=== PATIENT | female | born 1935 | race Caucasian/White ===

== ENCOUNTER 2016-06-24 11:07 | Inpatient (IN) | payer OTHER, MEDICARE ==
--- NOTE | 2016-06-24 11:50 | EDPHY ---
H & P Time Seen by Provider: 06/24/16 11:35 HPI/ROS: Chief complaint. Seeping edema to both feet HPI. 80-year-old female with swelling to both lower extremities for the last several days. Gradual increase in pedal edema. 2 days ago her Lasix was increased but without effect. She has an open sore on the top of the right foot which is gradually worsening. She was recently started on clindamycin orally for this. No fever. No chest discomfort. Some shortness of breath. ROS Constitutional. no fever/chills, no weakness Eyes. no problems with vision ENT. no sore throat, no nasal drainage Cardiovascular. no chest pain Respiratory. Some shortness of breath Abdominal. no abdominal pain, no nausea/vomiting, no diarrhea . no problems urinating MS. Bilateral pedal edema Skin. Open sore on dorsum right foot Lymph. no swollen glands Neuro. no headache, no dizziness, no difficulty walking or with speech Past Medical/Surgical History: Past medical history coronary artery disease with stents, cholecystectomy, atrial fibrillation, hypertension, chronic renal insufficiency, lung cancer with left lobectomy Social History: , nonsmoker, no alcohol Smoking Status: Never smoked Physical Exam: General Appearance: Alert well-developed female mild distress vital signs are stable. She is afebrile Eyes: Pupils equal and round no pallor or injection. ENT, Mouth: Mucous membranes are moist. Respiratory: There are no retractions, lungs are clear to auscultation. Cardiovascular: Regular rate and rhythm. Gastrointestinal: Abdomen is soft and nontender, no masses, bowel sounds normal. Neurological: Awake and alert, sensory and motor exams grossly normal. Skin: Warm and dry, no rashes. Musculoskeletal: Neck is supple nontender. Extremities bilateral 3 to 4+ pedal edema to both knees. There is an open sore at the base of the 2nd and 3rd toes with purulence. Psychiatric: Patient is oriented X 3, there is no agitation. Constitutional: Initial Vital Signs Temperature (C) 36.7 C 06/24/16 11:10 Heart Rate 54 L 06/24/16 11:10 Respiratory Rate 14 06/24/16 11:10 Blood Pressure 127/43 H 06/24/16 11:10 O2 Sat (%) 92 06/24/16 11:10 O2 Delivery Mode Room Air Allergies/Adverse Reactions: penicillin V potassium [From Pen-Vee K] Allergy (Verified 05/28/16 01:36) Penicillins Allergy (Verified 06/24/16 11:10) Sulfa (Sulfonamide Antibiotics) Allergy (Verified 05/28/16 01:36) Home Medications: Medication Instructions Recorded Amiodarone HCl [Pacerone (*)] 50 mg PO DAILY 08/19/12 Multivitamins [Multivitamin (*)] 1 each PO DAILY 08/19/12 Atorvastatin Calcium [Lipitor 10 10 mg PO HS #30 tab 03/07/16 mg (*)] Clopidogrel Bisulfate [Plavix (*)] 75 mg PO DAILY #30 tab 03/07/16 Nitroglycerin [Nitrostat 0.4 mg 0.4 mg SL PRN PRN #1 btl 03/07/16 (*)] Apixaban [Eliquis] 2.5 mg PO BID 03/12/16 Furosemide [Lasix 20 MG (*)] 20 mg PO DAILY 03/12/16 Propylthiouracil [Propylthiouracil 50 mg PO BID #60 tab 03/13/16 50mg (*)] Losartan Potassium [Cozaar 25 mg 25 mg PO DAILY 05/26/16 (*)] Melatonin [Melatonin 3 MG (*)] 3 mg PO HS #30 tab 05/27/16 Carboxymethylcellulose 1% [Refresh 1 - 2 drop EACHEYE Q2 PRN #0 06/06/16 Celluvisc (*)] droperette Lactulose [Cephulac 20 gm/30 ml 20 gm PO TID PRN #0 ml 06/06/16 oral soln (*)] Metoprolol Tartrate [Lopressor 50 75 mg PO BID #0 tab 06/06/16 mg (*)] Sennosides/Docusate Sodium 1 - 2 tab PO BID #0 tab 06/06/16 [Senokot-S] traMADol [Ultram 50 mg (*)] 50 mg PO Q6HRS PRN #0 tab 06/06/16 Medical Decision Making - Diagnostics Imaging: Foot x-ray demonstrates no osteomyelitis to my interpretation. Chest x-ray shows mild CHF and evidence of her left lobectomy and lung cancer. No pneumonia Procedures: IV normal saline, blood cultures, lactate Patient is given intravenous clindamycin ED Course/Re-evaluation: I obtained a swab for culture and sensitivity of the wound. Re-evaluation at 1:15 p.m.. The patient and I discussed imaging and lab results. We discussed treatment plan including recommendation for admission. She expresses understanding and agreement I consulted and discussed the case with Dr. Garcia, hospitalist, who agrees to the admission Differential Diagnosis: I considered cellulitis, lymphangitis, osteomyelitis. The patient has an open wound that has not been getting better despite oral clindamycin treatment. She has significant underlying congestive heart failure which I think is impairing her circulation inability get better. Plan will be admission, wound care, CHF management - Data Points Laboratory Results: Laboratory Results 06/24/16 11:48 06/24/16 11:48 06/24/16 06/24/16 12:20 11:48 WBC 6.77 10^3/uL (3.80-9.50) RBC 4.34 10^6/uL (4.18-5.33) Hgb 13.5 g/dL (12.6-16.3) Hct 41.2 % (38.0-47.0) MCV 94.9 fL (81.5-99.8) MCH 31.1 pg (27.9-34.1) MCHC 32.8 g/dL (32.4-36.7) RDW 14.6 % (11.5-15.2) Plt Count 239 10^3/uL (150-400) MPV 9.5 fL (8.7-11.7) Neut % (Auto) 73.2 % (39.3-74.2) Lymph % (Auto) 16.4 % (15.0-45.0) [place] % (Auto) 8.3 % (4.5-13.0) Eos % (Auto) 0.9 % (0.6-7.6) Baso % (Auto) 0.6 % (0.3-1.7) Nucleat RBC Rel Count 0.0 % (0.0-0.2) Absolute Neuts (auto) 4.96 10^3/uL (1.70-6.50) Absolute Lymphs (auto) 1.11 10^3/uL (1.00-3.00) Absolute Monos (auto) 0.56 10^3/uL (0.30-0.80) Absolute Eos (auto) 0.06 10^3/uL (0.03-0.40) Absolute Basos (auto) 0.04 10^3/uL (0.02-0.10) Absolute Nucleated RBC 0.00 10^3/uL (0-0.01) Immature Gran % 0.6 % (0.0-1.1) Immature Gran # 0.04 10^3/uL (0.00-0.10) VBG Lactic Acid 1.7 mmol/L (0.7-2.1) Sodium 141 mEq/L (134-144) Potassium 3.9 mEq/L (3.5-5.2) Chloride 100 mEq/L (97-110) Carbon Dioxide 30 mEq/l (22-31) Anion Gap 11 mEq/L (8-16) BUN 32 H mg/dL (7-23) Creatinine 1.1 H mg/dL (0.6-1.0) Estimated GFR 48 Glucose 69 L mg/dL (70-100) Calcium 8.8 mg/dL (8.5-10.4) Troponin I < 0.012 ng/mL (0-0.034) NT-Pro-B Natriuret Pep 8910 H pg/mL (0-450) Departure - Departure Disposition: Home, Routine, Self-Care Clinical Impression: CHF (congestive heart failure) Qualifiers: Congestive heart failure type: combined Congestive heart failure chronicity: acute on chronic Qualifier Code: (I50.43) 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
[2016-06-24] MEDS ORDERED: ERTAPENEM 1 GM in NS 100 ML IV ONE (12:02)
[2016-06-24] MEDS ORDERED: CLINDAMYCIN 600 MG/DEXTROSE 50 ML IV ONE (12:05)
[2016-06-24 12:09] LABS: % IMMATURE GRANULYOCYTES 0.6 % (0.0-1.1); ABSOLUTE IMMATURE GRANULOCYTES 0.04 10^3/uL (0.00-0.10); ADD DIFF? NO; ADD MORPH? NO; ADD SCAN? NO; ATYPICAL LYMPHOCYTE FLAG 10 (0-99); FRAGMENT RBC FLAG 0 (0-99); HEMATOCRIT 41.2 % (38.0-47.0); HEMOGLOBIN 13.5 g/dL (12.6-16.3); LEFT SHIFT FLG 0 (0-99); LIPEMIA HEMOLYSIS FLAG 80 (0-99); MEAN CELL HEMOGLOBIN 31.1 pg (27.9-34.1); MEAN CELL HEMOGLOBIN CONCENTR. 32.8 g/dL (32.4-36.7); MEAN CELL VOLUME 94.9 fL (81.5-99.8); MEAN PLATELET VOLUME 9.5 fL (8.7-11.7); PLATELET CLUMPS FLAG 0 (0-99); PLATELET COUNT 239 10^3/uL (150-400); RED BLOOD CELL COUNT 4.34 10^6/uL (4.18-5.33); RED CELL DISTRIBUTION WIDTH 14.6 % (11.5-15.2)
[2016-06-24 12:15] LABS: ANION GAP 11 mEq/L (8-16); CALCIUM 8.8 mg/dL (8.5-10.4); CARBON DIOXIDE 30 mEq/l (22-31); CHLORIDE 100 mEq/L (97-110); CREATININE 1.1 mg/dL (0.6-1.0); GLOMERULAR FILTRATION RATE 48; GLUCOSE 69 mg/dL (70-100); POTASSIUM 3.9 mEq/L (3.5-5.2); SODIUM 141 mEq/L (134-144)
[2016-06-24 12:27] LABS: TROPONIN I < 0.012 ng/mL (0-0.034)
--- NOTE | 2016-06-24 13:01 | DX ---
Portable chest x-ray 1226 hours. History: Chest pain. Findings: Comparison to May 26, 2016. The patient has apparently had previous lobectomy on the left with surgical clips in place. There is volume loss of the left hemithorax. Heart size remains mild to moderately enlarged. Pulmonary vascula ture is prominent centrally similar to the prior study. The lungs are hyper expanded. There is new co nsolidation suspected left lung base versus atelectasis. No additional areas of consolidation are see n evidence of pneumothorax. There is blunting of the costophrenic angles compatible with small effusi ons. Osseous structures are unchanged. There has been previous surgical resection of the left 5th rib . Dextroscoliosis is once again noted of the lower thoracic spine. Impression: 1. Interval development of consolidation or atelectasis left lung base. 2. Small bibasilar pleural effusions suspected. 3. Postoperative changes from previous lobectomy on the left. 4. Stable mild to moderate cardiomegaly 5. COPD
[2016-06-24] MEDS ORDERED: ACETAMINOPHEN 325 MG TAB ONE (13:51)
--- NOTE | 2016-06-24 14:00 | DX ---
Right Foot, 3 Views, at 12:27 p.m. Clinical History: 80-year-old female with pedal edema and an open sore on the top of the right foot (near the base of the second and third toes) which has been gradually worsening, recently treated wit h clindamycin. Comparison Study: Right foot, dated October 28, 2014. Findings: The bones are diffusely demineralized. There is no acute marginal erosive change to sugges t osteomyelitis. There is a mild hallux valgus configuration with an osseous bunion and degenerative osteoarthrosis of the great toe metatarsophalangeal joint. There has been interim healing of the frac ture previously seen at the level of the distal portion of the fourth toe proximal phalanx. The tarso metatarsal alignment is anatomic. There are prominent posterior calcaneal enthesophytes. Vascular kendal cifications are present. There is some mild dorsal forefoot soft tissue swelling noted on the lateral view. Impression: There is no acute osseous abnormality identified. If there is continuing clinical concern regarding an occult osteomyelitis, contrast-enhanced MR imagi ng is suggested.
[2016-06-24] MEDS ORDERED: CARBOXYMETHYLCELLULOSE 1% 0.4 ML DROPERETTE EACHEYE PRN (14:37)
[2016-06-24] MEDS ORDERED: traMADol 50 MG TAB PO PRN (14:37)
[2016-06-24] MEDS ORDERED: ONDANSETRON 4 MG/2 ML VIAL IVP PRN (14:40)
[2016-06-24] MEDS ORDERED: ONDANSETRON DISINTEGRATING 4 MG TAB PO PRN (14:40)
--- NOTE | 2016-06-24 15:20 | GHP ---
[f rep st] HISTORY AND PHYSICAL DATE OF ADMISSION: 06/24/2016 CHIEF COMPLAINT: Lower extremity edema. HISTORY OF PRESENT ILLNESS: This is an 80-year-old female with a complicated medical history. She h as a history of an MT about 4 months ago. At that time, she had stenting to the right coronary arter y x2. She also has history of paroxysmal atrial fibrillation. Last echocardiogram done in March this year showed an EF of 35% to 40% with cvbjucul-hy-ahimkj mitral regurgitation and pulmonary hyp ertension. She was recently admitted to the hospital just a few weeks ago for cholecystitis for whic h she had gallbladder removed, and an ovarian mass was biopsied, which was benign. She said she went to rehab, and in rehab, she had worsening lower extremity swelling, which she says was not addressed . She has been out of rehab for a few days now and was able to see her private sector executive, but the [facility] saw her legs and told her to come to the emergency department. She has some blister s on her right toes that now have burst. She had some increasing pain in the right leg. No fevers o r chills. No shortness of breath. She actually feels quite well overall and is frustrated about supa ng back in the hospital. REVIEW OF SYSTEMS: A 10-point review of systems was obtained and was negative. PAST MEDICAL HISTORY: 1. Coronary artery disease, status post recent stenting. 2. History of atrial fibrillation with rapid ventricular response. 3. Mmugivvo-rc-blgehk mitral regurgitation as above. 4. Recent cholecystitis status post recent cholecystectomy. 5. Ovarian mass. Pathology appears to be benign. 6. History of peripheral vascular disease and left renal artery stenosis. 7. Chronic kidney disease for which she sees Dr. Pollard. 8. History of lung cancer of the left lower lobe status post lobectomy. 9. Hyperthyroidism on PTU. 10. Recent fractured wrist. 11. Osteoporosis. SOCIAL HISTORY: for 19 years. Has 2 adult children. MEDICATIONS: Reviewed. ALLERGIES: Penicillin causes throat to be closed. This was when she was young. She is also allergi c to sulfa. FAMILY HISTORY: Both parents are . PHYSICAL EXAM: VITAL SIGNS: Afebrile, blood pressure is 128/64, heart rate 53, oxygen saturation 96 % on room air. GENERAL: The patient is thin but in no apparent distress. HEENT: Nonicteric sclera e. Extraocular movements intact. Moist mucous membranes. NECK: Supple. No thyromegaly. LUNGS: Good effort. Decreased breath sounds in the left base. Otherwise clear. CARDIOVASCULAR: Regular r ate and rhythm. ABDOMEN: Positive bowel sounds. Soft, nontender, nondistended. No hepatosplenomeg nayana. EXTREMITIES: 2+ pedal edema bilaterally and symmetric. Right foot has some erythema that is e xtending to the toes and to the dorsum of the foot. There are 2 blisters on the anterior toes that h ave burst. Foot is little bit warmer than the other one. NEUROLOGIC: Alert and oriented x3. Movin g all 4 extremities equally. PSYCH: Normal mood and affect. LABS: CBC is completely normal. Chemistry shows a creatinine 1.1. BNP of 8910. Chest x-ray personally reviewed and interpreted shows possible atelectasis, left lower lobe status po st lobectomy. ASSESSMENT: This is an 80-year-old female presenting with congestive heart failure exacerbation and possible right lower extremity cellulitis. PLAN: 1. CHF exacerbation. 2. Acute systolic congestive heart failure exacerbation. The patient probably has lower extremity e zina and is probably due to her MR and pulmonary hypertension. We will start IV Lasix. I have also talked to cardiology as she is a regular patient of Dr. Kohli in [facility] for them to see the patie nt as well. 3. Possible right lower extremity cellulitis. I am a little bit on the fence if this is just inflam mation versus cellulitis. However foot is warm, and her toes are somewhat red. She does have a tariq re allergy to penicillin and insists that she takes clindamycin without problems. I do want to avoid clindamycin as this would put her at high risk for C difficile. Will probably just give her vancomy jak at this time and watch. I think she only needs a few days of antibiotics. 4. Paroxysmal atrial fibrillation. Patient currently in sinus rhythm and will continue anticoagulat ion. 5. Chronic kidney disease. Patient is at her baseline. 6. Coronary artery disease. This appears to be quiescent. 7. Patient is a DNR. /[id number]/MODL
[2016-06-24] MEDS: FUROSEMIDE 40 MG/4 ML VIAL IVP SCH (16:15)
[2016-06-24] MEDS: VANCOMYCIN 500 MG in D5W 100 ML IV SCH (17:15)
[2016-06-24] MEDS ORDERED: SENNOSIDES/DOCUSATE SODIUM TAB PO PRN (18:00)
[2016-06-24] MEDS: ATORVASTATIN CALCIUM 10 MG TAB PO SCH (21:29)
[2016-06-24] MEDS: ACETAMINOPHEN 325 MG TAB PO PRN (21:29)
[2016-06-24] MEDS: APIXABAN 2.5 MG TAB PO SCH (21:29)
[2016-06-24] MEDS: MELATONIN 3 MG TAB PO SCH (21:30)
[2016-06-24] MEDS: METOPROLOL TARTRATE 50 MG TAB PO SCH (21:54)
[2016-06-24] MEDS: TOBRAMYCIN/DEXAMETH 5 ML OPHT.BTL EACHEYE SCH (23:17)
[2016-06-25] MEDS: ACETAMINOPHEN 325 MG TAB PO PRN ×2 (03:58→12:13)
[2016-06-25 05:10] LABS: % IMMATURE GRANULYOCYTES 0.8 % (0.0-1.1); ABSOLUTE IMMATURE GRANULOCYTES 0.05 10^3/uL (0.00-0.10); ADD DIFF? NO; ADD MORPH? NO; ADD SCAN? NO; ATYPICAL LYMPHOCYTE FLAG 0 (0-99); FRAGMENT RBC FLAG 0 (0-99); HEMATOCRIT 37.1 % (38.0-47.0); HEMOGLOBIN 12.3 g/dL (12.6-16.3); LEFT SHIFT FLG 0 (0-99); LIPEMIA HEMOLYSIS FLAG 80 (0-99); MEAN CELL HEMOGLOBIN 30.8 pg (27.9-34.1); MEAN CELL HEMOGLOBIN CONCENTR. 33.2 g/dL (32.4-36.7); MEAN PLATELET VOLUME 9.9 fL (8.7-11.7); PLATELET CLUMPS FLAG 0 (0-99); PLATELET COUNT 203 10^3/uL (150-400); RED BLOOD CELL COUNT 3.99 10^6/uL (4.18-5.33); RED CELL DISTRIBUTION WIDTH 14.6 % (11.5-15.2)
[2016-06-25 05:32] LABS: ANION GAP 7 mEq/L (8-16); CALCIUM 8.6 mg/dL (8.5-10.4); CARBON DIOXIDE 32 mEq/l (22-31); CHLORIDE 103 mEq/L (97-110); CREATININE 1.1 mg/dL (0.6-1.0); GLOMERULAR FILTRATION RATE 48; GLUCOSE 69 mg/dL (70-100); MAGNESIUM 2.3 mg/dL (1.6-2.3); POTASSIUM 3.5 mEq/L (3.5-5.2); SODIUM 142 mEq/L (134-144)
[2016-06-25] MEDS: METOPROLOL TARTRATE 50 MG TAB PO SCH ×2 (07:53→21:58)
[2016-06-25] MEDS: LOSARTAN POTASSIUM 25 MG TAB PO SCH (07:55)
[2016-06-25] MEDS: AMIODARONE HCL 200 MG TAB PO SCH (07:55)
[2016-06-25] MEDS: APIXABAN 2.5 MG TAB PO SCH ×2 (07:55→21:58)
[2016-06-25] MEDS: CLOPIDOGREL BISULFATE 75 MG TAB PO SCH (07:55)
[2016-06-25] MEDS: FUROSEMIDE 40 MG/4 ML VIAL IVP SCH ×2 (07:56→14:35)
[2016-06-25] MEDS: POLYETHYLENE GLYCOL 3350 17 GM PKT PO SCH (07:56)
[2016-06-25] MEDS: TOBRAMYCIN/DEXAMETH 5 ML OPHT.BTL EACHEYE SCH ×3 (08:01→22:00)
--- NOTE | 2016-06-25 09:03 | HOSPPROG ---
Hospitalist Progress Note Assessment/Plan: * acute systolic CHF exacerbation * continue IV Lasix for another day * echo pending * possible left lower extremity cellulitis * erythema is a lot better today. * Will continue IV vancomycin another day and may switch to an oral antibiotic for a day or 2 depending on how long she stays. * Not completely convinced this was cellulitis but it does seem to be getting better pretty quickly * history of coronary artery disease with recent stent * paroxysmal atrial fibrillation * in sinus * recent cholecystectomy * mild chronic kidney disease * at baseline * DNR Subjective: Feels better. Legs feel better. No chest pain or shortness of breath Objective: Vital Signs Temp Pulse Resp BP Pulse Ox 36.4 C 46 L 18 158/66 H 92 06/25/16 07:09 06/25/16 07:09 06/25/16 07:09 06/25/16 07:09 06/25/16 07:09 Laboratory Results 06/25/16 03:52 06/25/16 03:52 06/24/16 06/25/16 06/26/16 05:59 05:59 05:59 Intake Total 350 Output Total 1351 200 Balance -1001 -200 - Physical Exam Constitutional: no apparent distress, appears nourished, not in pain Eyes: anicteric sclera, EOMI Ears, Nose, Mouth, Throat: moist mucous membranes, hearing normal Cardiovascular: regular rate and rhythym, edema ( improved edema now 1+) Respiratory: no respiratory distress Gastrointestinal: normoactive bowel sounds, soft, non-tender abdomen, no palpable masses Skin: warm Musculoskeletal: other ( right foot with improving erythema. toes now do not have erythema) Neurologic: AAOx3 Psychiatric: interacting appropriately, not anxious, not encephalopathic, thought process linear ICD10 Worksheet Patient Problems: Problems Problem Status Diagnosed Acute decompensated heart failure Acute CHF (congestive heart failure) Acute Chronic Diseae Mgmt/Transitional Care Acute Foot ulcer Acute MEREDITH (acute kidney injury) Acute Afib Acute Atrial fibrillation with rapid ventricular response Acute Chest pain Acute Dehydration Acute Elevated LFTs Acute Pleural effusion due to CHF (congestive heart failure) Acute
--- NOTE | 2016-06-25 10:43 | ECHO ---
[id number] + + [address] : : [place] [id number] : : [phone] + Adult Echocardiographic Report + -------+ :Name: CHIO HAUSER Date: 06/25/2016 09:01 AM BP: 158/66 mmH g : : Hospital Admission Number: [id number] Locati on: 208: :: 1935 Gender: Female Height: 64 in : :Age: 80 yrs Race: WH Weight: 89 lb : :Reason For Study: copd/sob/cp/bilateral edema : : BSA: 1.4 meter s2 : :History: MR/TR : + -------+ MMode/2D Measurements & Calculations IVSd: 0.99 cm RVDd: 4.2 cm FS: 38.1 % MV Diam: 3.2 cm LVPWd: 0.94 cm LVIDd: 4.3 cm EDV(Teich): 83.1 ml LVIDs: 2.7 cm ESV(Teich): 26.0 ml EF(Teich): 68.7 % Ao root diam: LVOT diam: 1.9 cmLVLd ap4: 6.1 cm SV(MOD-sp4): 2.1 cm LVOT area: EDV(MOD-sp4): 50.0 ml LA dimension: 2.8 cm2 73.0 ml 5.1 cm LVLs ap4: 5.1 cm ESV(MOD-sp4): 23.0 ml EF(MOD-sp4): 68.5 % Normal Measurement Values: + + :LVIDd (3.5-5.7cm) IVSd (0.6-1.1cm) LVPWd (0.6-1.1cm) Aortic Root (2.0-3.7cm)Left Atrium (1.5-4.0cm): :LV Vol(d) (76-115ml) LV Vol(s) (29-48ml) Ejec Fraction (50-65%)PV Jl (0.6- 1.2m/s) TV Jl (0.4-1.0m/s) : :MV E Jl (0.8-1.0m/s)MV A Jl (0.3-1.0m/s)LVOT Jl (0.7-1.2m/s) Asc Ao Jl ( 0.9-1.8m/s) : + + Doppler Measurements & Calculations MV E max jl: MV V2 max: Ao V2 max: AI max jl: 71.1 cm/sec 45.9 cm/sec 106.0 cm/sec 357.0 cm/sec MV A max jl: MV max PG: Ao max PG: AI max P.2 cm/sec 0.84 mmHg 4.5 mmHg 51.0 mmHg MV E/A: 1.2 MV V2 mean: ANJU(V,D): 2.5 cm2 AI dec slope: MV dec time: 24.4 cm/sec 161.0 cm/sec2 0.20 sec MV mean PG: AI P1/2t: 0.00 mmHg 649.5 msec MV V2 VTI: 18.7 cm MV area (1 diam): 8.0 cm2 MVA(VTI): 3.5 cm2 MV Flow area (1diam): 8.0 cm2 LV V1 max: MR max jl: MR(RF 1 diam): SV(MV 1 diam): 94.7 cm/sec 439.0 cm/sec 33.6 % 150.4 ml LV V1 max PG: MR max PG: SI(MV 1 diam): 3.6 mmHg 77.1 mmHg 108.5 ml/m2 LV V1 mean PG: SV(LVOT): 65.5 ml 2.0 mmHg LV V1 mean: 62.6 cm/sec LV V1 VTI: 23.1 cm PA V2 max: TR max jl: RF(MV,LVOT) 69.8 cm/sec 394.0 cm/sec (1diam): 0.56 PA max PG: TR max P.9 mmHg 62.1 mmHg RAP systole: 15.0 mmHg RVSP(TR): 77.1 mmHg Left Ventricle The left ventricle is normal in size and function. There is borderline concentric left ventricular hypertrophy. Ejection Fraction = 65-70%. Most likely grade II diastolic dysfunction. No regional wall motion abnormalities noted. Right Ventricle The right ventricle is mildly dilated. The right ventricular systolic function is normal. Atria The left atrium is severely dilated. The right atrium is severely dilated. A dilated inferior vena cava suggests increased right atrial pressure. The lack of respiratory variation in the inferior vena cava diameter is noted. Mitral Valve The mitral valve leaflets appear thickened, but open well. There is mild mitral annular calcification. There is no mitral valve stenosis. There is moderate mitral regurgitation. Tricuspid Valve The tricuspid valve is normal in structure and function. There is no tricuspid stenosis. There is severe tricuspid regurgitation. Right ventricular systolic pressure is 77mmHg. There is Doppler evidence for severe pulmonary hypertension. Aortic Valve The aortic valve is trileaflet. There is mild aortic valve calcification. There is no aortic stenosis. Mild aortic regurgitation. Pulmonic Valve The pulmonic valve is not well visualized. Mild pulmonic valvular regurgitation. Great Vessels The aortic root is normal size. Pericardium/Pleural Small pericardial effusion. Conclusion A two-dimensional transthoracic echocardiogram with M-mode and Doppler was performed. The left ventricle is normal in size and function. There is borderline concentric left ventricular hypertrophy. Ejection Fraction = 65-70%. Most likely grade II diastolic dysfunction. The right ventricle is mildly dilated. The left atrium is severely dilated. The right atrium is severely dilated. A dilated inferior vena cava suggests increased right atrial pressure. The lack of respiratory variation in the inferior vena cava diameter is noted. There is moderate mitral regurgitation. There is severe tricuspid regurgitation. Right ventricular systolic pressure is 77mmHg. There is Doppler evidence for severe pulmonary hypertension. Mild aortic regurgitation. Mild pulmonic valvular regurgitation. Small pericardial effusion. Final Reading Physician: Heike Johnson signed on 06/25/2016 10:42 AM Ordering Physician: Enrique Amaya Performed By: Lou Jj
--- NOTE | 2016-06-25 14:42 | SOAPPROG ---
[facility] Progress Note Assessment/Plan: Assessment: 1. Coronary artery disease 2. Remote cardiomyopathy 3. Diastolic dysfunction 4. Elevated BNP 5. HFPEF 6. Atrial fibrillation 7. Chronic full anticoagulation The patient is doing fine today she received multiple doses of IV Lasix and she has gotten IV Lasix today. I would resume her p. o. Lasix tomorrow. She feels well. I do believe that she had some diastolic heart failure when she came in. That is not why she was admitted to the hospital however. She follows with Dr. Uriarte in the [facility] failure [facility] and will continue with him. All questions have been answered. She is in sinus rhythm. She has known coronary artery disease with a stent several months ago. She is doing very well with that. I have discussed prevention with her. Her echocardiographic study today shows no stones and no abnormality of systolic function, she has diastolic dysfunction and mitral and tricuspid regurgitation and elevated pulmonary artery pressure. All these things have been there a long standing. She is taking her atorvastatin and her full anticoagulation. She is on Plavix as a anti-platelet medication will continue that for a year after her stent. From a heart failure situation she is on Coreg and Lasix losartan tolerating knows very well. If she develops more troubles at any time she will let us know. She will follow up with Dr. Manning in clinic in 10 days or sooner as needed. Problem 8. Wound right leg This is being evaluated by the room service. She is feeling like it is improving She is on full antibiotics. There is nothing in her case that suggest to me that she has developed endocarditis or any other significant valvular problem due to this infection. Plan: 06/25/16 14:39 Subjective: She feels better today. She continues to have worries about her right leg. She does not have any shortness of breath today. She feels like she is doing well. She has no chest pain or jaw pain. When I examined her yesterday and spoke with her extensively She told me that she was not having shortness of breath and that is not why she came to the hospital. She specifically came to the hospital because the nursing service The was in charge of her care told her to come to the emergency room When she explained her wound on her right leg. She has not had fevers or chills No cough no chest tightness. Objective: Vital Signs Temp Pulse Resp BP Pulse Ox 36.5 C 45 L 14 114/51 L 93 06/25/16 12:00 06/25/16 12:00 06/25/16 12:00 06/25/16 12:00 06/25/16 12:00 Laboratory Results 06/25/16 03:52 06/25/16 03:52 06/24/16 06/25/16 06/26/16 05:59 05:59 05:59 Intake Total 350 Output Total 1351 950 Balance -1001 -950 Physical Exam - Physical Exam General Appearance: alert, no apparent distress Neck: full range of motion Respiratory: rhonchi, No respiratory distress, No rales, No wheezing Cardiac/Chest: regular rate, rhythm, systolic murmur Abdomen: non-tender, soft, No organomegaly Skin: warm/dry (wound r lower extremity) ICD10 Worksheet Patient Problems: Problems Problem Status Diagnosed Acute decompensated heart failure Acute CHF (congestive heart failure) Acute Chronic Diseae Mgmt/Transitional Care Acute Foot ulcer Acute MEREDITH (acute kidney injury) Acute Afib Acute Atrial fibrillation with rapid ventricular response Acute Chest pain Acute Dehydration Acute Elevated LFTs Acute Pleural effusion due to CHF (congestive heart failure) Acute
--- NOTE | 2016-06-25 15:34 | GCON ---
[f rep st] CONSULTATION CARDIOVASCULAR CONSULTATION DATE OF CONSULTATION: 06/24/2016 The patient was admitted to [facility], and I have been asked by the hospitalist to provide a cardiovascular consultation. She tells me that she had been in rehab after her gallbladder surgery. She was there for 7 or 8 days, and then she went home a few days ago. Her foot has been just awful, her right foot. It has been bothering her a great deal. It is painful. She has a wound there, and she is very worried about it. Her leg has become more swollen. She talked to the nursing staff of the people that were providing her home health support and the nursing staff said she should go to the emergency room. She went to the emergency room and was cared for there, and because she had developed such a wound, she was admitted to the hospital. She does not have any fevers or chills or cough. She has not had chest pain or chest tightness. She denies any significant change in shortness of breath. She really came not because of any heart symptoms, she says, but because her leg was bothering her. She sleeps on 2 pillows and that is no different. She had no dyspnea on exertion, no early satiety, no increasing abdominal girth. She does not have nausea, vomiting, diarrhea, or constipation. No rigors. No hot swollen joints or other rashes, except for her lower extremity on the right side. She has not had headache, stiff neck, or sore throat. No photophobia. No dysuria, frequency, or pyuria. No trauma. She does not have a history of cancer. She did have breast cancer years ago, but no recent cancers. She has been sitting around quite a great deal, and she has not been very active with all of these changes that have been going on with her. Her cardiac history includes a myocardial infarction in February 2016, and she received a stent to her right coronary artery. At that time, her ejection fraction was 47%. She has had atrial fibrillation. In the past, she has used amiodarone. Cardiac risk factors are negative for diabetes mellitus. She does have a history of peripheral vascular disease with left renal artery stenosis. She is also cared for for chronic renal insufficiency and sees Dr. Pollard on the renal service. She does not smoke. She has not had hyperuricemia. She is not obese. She is quite active. She is very pleasant. PAST MEDICAL HISTORY: Includes breast cancer. She does have hypertension for cardiac risk factors. She has had hypothyroidism. She has long-standing mitral regurgitation. She has had thyroid nodules in the past. ALLERGIES: Penicillin. MEDICATIONS: Listed in the record and not repeated here. FAMILY HISTORY: No family history of premature coronary disease. No history of unexplained sudden at a young age. No smoking, no significant drinking history. SOCIAL HISTORY: She was born in [place]. At age 18, she moved to [place]. 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 She also has worked at [employer] and done that recently. 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 She found [place] a little bit slow for her. She was near [place]. She has worked at [employer] [facility] [employer] in the past in [place]. She has 2 children, a daughter, who is here, and a child in [place]. She does not smoke. She does not drink significant amounts of alcohol. She exercises by walking around. PHYSICAL EXAMINATION: VITAL SIGNS: Her blood pressure is 110/77, heart rate 60 , respiratory rate 12. GENERAL APPEARANCE: She is sitting comfortably in the hospital bed. NECK: Supple. CARDIOVASCULAR: S1, S2. Systolic murmur at the left sternal border. No diastolic murmur. No S3, S4, or rubs. PULMONARY: Rhonchi bilaterally. No rales, wheezes, or dullness. CVA: No tenderness. ABDOMEN: Soft, nontender, without masses. SKIN: Age-related changes and significant wound in the right lower extremity. Both extremities show minimal edema. NEUROLOGIC: She is alert and intact. PSYCHIATRIC: No obvious anxiety or depression. DATA: Her echocardiographic study shows an excellent EF today. Her pulmonary artery pressure is elevated, as it has been in the past. ASSESSMENT/PLAN: 1. Coronary artery disease. 2. Diastolic dysfunction. 3. Mitral regurgitation. 4. Elevated BNP. 5. Paroxysmal atrial fibrillation. She is having no acute cardiovascular symptoms or changes. When she came in, it was felt that she had some acute diastolic dysfunction, she was given some IV Lasix, and she feels wonderful; but, she told me all the way along she did not think that she had shortness of breath to start with, and that is not bothering her now. What she is really worried about is her right leg. She is followed by Dr. Kohli in the congestive heart failure clinic, and he will see her on a regular basis over time. So, she is doing very well from a congestive heart failure [id number] right now. She will follow in clinic. She is on full anticoagulation, which is what she needs because of her [id number]- VASc score. She is in sinus rhythm today. 6. Right lower extremity wound. This leg does not look good, and it is a significant problem for her. It is going to be managed by the wound clinic and , if necessary, Dr. Pineda. She has had her gallbladder out recently with Dr. Pineda. There is also some concern that she could have embolic disease, as she has been sitting around a great deal and she has not been as active as normal. I will discuss this with the hospitalist for further evaluation. 7. Chronic renal insufficiency. 8. History of renal stenosis. Thank you very much for asking me to see this very complex woman. I will follow her closely with you. /[id number]/MODL MTDD
[2016-06-25] MEDS: VANCOMYCIN 500 MG in D5W 100 ML IV SCH (15:47)
[2016-06-25 15:57] VITALS: O2SAT 91
[2016-06-25] MEDS: ATORVASTATIN CALCIUM 10 MG TAB PO SCH (21:58)
[2016-06-25] MEDS: MELATONIN 3 MG TAB PO SCH (22:03)
[2016-06-26] MEDS: ACETAMINOPHEN 325 MG TAB PO PRN (00:54)
[2016-06-26 07:23] VITALS: BP 162/66; PULSE 46; RESP 14; TEMP 97.6
[2016-06-26] MEDS: FUROSEMIDE 40 MG/4 ML VIAL IVP SCH (08:11)
[2016-06-26] MEDS: METOPROLOL TARTRATE 50 MG TAB PO SCH (08:12)
[2016-06-26] MEDS: LOSARTAN POTASSIUM 25 MG TAB PO SCH (08:12)
[2016-06-26] MEDS: APIXABAN 2.5 MG TAB PO SCH (08:13)
[2016-06-26] MEDS: AMIODARONE HCL 200 MG TAB PO SCH (08:13)
[2016-06-26] MEDS: CLOPIDOGREL BISULFATE 75 MG TAB PO SCH (08:13)
[2016-06-26] MEDS: TOBRAMYCIN/DEXAMETH 5 ML OPHT.BTL EACHEYE SCH (08:14)
[2016-06-26] MEDS: POLYETHYLENE GLYCOL 3350 17 GM PKT PO SCH (08:56)
--- NOTE | 2016-06-26 10:08 | PDIAF ---
- Diagnosis Diagnosis: acute diadtolic heart failure Code Status: Do Not Resuscitate - Medication Management Discharge Medications: Medications to Continue on Transfer Amiodarone HCl [Pacerone (*)] 50 mg PO DAILY 08/19/12 [Last Taken 06/24/16] Multivitamins [Multivitamin (*)] 1 each PO DAILY 08/19/12 [Last Taken 06/24/16] Atorvastatin Calcium [Lipitor 10 mg (*)] 10 mg PO HS #30 tab 03/07/16 [Last Taken 06/23/16] Clopidogrel Bisulfate [Plavix (*)] 75 mg PO DAILY #30 tab 03/07/16 [Last Taken 06/24/16] Nitroglycerin [Nitrostat 0.4 mg (*)] 0.4 mg SL PRN PRN #1 btl 03/07/16 [Last Taken Unknown] Apixaban [Eliquis] 2.5 mg PO BID 03/12/16 [Last Taken 06/24/16] Losartan Potassium [Cozaar 25 mg (*)] 25 mg PO DAILY 05/26/16 [Last Taken ] Carboxymethylcellulose 1% [Refresh Celluvisc (*)] 1 - 2 drop EACHEYE Q2 PRN #0 droperette 06/06/16 [Last Taken 06/24/16] Metoprolol Tartrate [Lopressor 50 mg (*)] 75 mg PO BID #0 tab 06/06/16 [Last Taken 06/24/16] traMADol [Ultram 50 mg (*)] 50 mg PO Q6HRS PRN #0 tab 06/06/16 [Last Taken 06/24] Acetaminophen [Tylenol 325mg (*)] 650 mg PO Q6 PRN 06/24/16 [Last Taken Unknown] Clindamycin HCl [Clindamycin] 300 mg PO TID 06/24/16 [Last Taken 06/24/16] Furosemide [Lasix 40 MG (*)] 40 mg PO DAILY 06/24/16 [Last Taken 06/24/16] Melatonin [Melatonin 3 MG (*)] 6 mg PO HS 06/24/16 [Last Taken 06/23/16] Polyethylene Glycol 3350 [Miralax 17 gm (*)] 17 gm PO DAILY 06/24/16 [Last Taken Unknown] Sennosides/Docusate Sodium [Senokot-S] 2 tab PO DAILY@18 PRN 06/24/16 [Last Taken 06/23/16] Tobramycin/Dexamethasone [Tobradex Eye Drops] 1 drop EACHEYE TID 06/24/16 [Last Taken Unknown] Discharge Medications: Refer to the Discharge Home Medication list for PRN reason. - Orders Diet Recommendation: no restrictions on diet, ADA 1800 consistent carb Diet Texture: Regular Texture Diet - Follow Up Care Current Providers and Referrals: Charissa Shen MD [Primary Care Provider] - As per Instructions
--- NOTE | 2016-06-26 11:35 | SOAPPROG ---
SOAP Progress Note Assessment/Plan: Assessment: 1. Coronary artery disease 2. Remote cardiomyopathy 3. Diastolic dysfunction 4. Elevated BNP 5. HFPEF 6. Atrial fibrillation 7. Chronic full anticoagulation Plan: 06/25/16 14:39 06/26/16 11:35 1. Coronary artery disease 2. Prior history of systolic ischemic cardiomyopathy 3. Diastolic dysfunction 4. Elevated BNP 5.HFPEF ; chronic 6 atrial fibrillation 7. Chronic full anticoagulation 8. Wound of right lower extremity She is preparing to go home. She would like to leave the hospital. She is not having any worsening symptoms of cardiovascular issues right now. She will be very active at home. She feels like her wound is much improved. She is not having any GI neurologic pulmonary a cardiovascular complaints today. I think she will do very well. For her coronary artery disease she is going to stay on Plavix and her statin. She is going to slowly pickle sorter her exercise for prevention. She will consider cardiac rehab. She has no symptoms of heart failure at this time. She has been given IV Lasix for several days and I think she should go home on 40 mg dosing of Lasix. That is the dose she was on before. She will follow up with the Heart failure Clinic within a week and they can adjust diuretics as needed to be. At this point time I do not want her to get too dried out. I talked her about postural hypotension of talked her about dehydration. She will be very careful. We really do not want her to go home and have a fall and break a bone. She feels quite prepared to go home and be there rather than get more help. She is on a full anticoagulation now having no complications with that right now. All her questions have been answered. She will call us any time she develops new issues. I have stressed with her that I want to make sure she stays out of the hospital I want to make sure that she feels strong. I want to make sure she knows how to call us if she has any issues. I have discussed her today with her nursing staff and with the hospitalists. Subjective: She has no shortness of breath. She is not getting chest pain. She has no peripheral edema. She is able to sleep flat. She is having no fevers chills or cough She has not developed any new rashes. She does not have itchy skin. She has no symptoms of bleeding. She is taking her medications and doing well. She feels quite Strong Objective: Vital Signs Temp Pulse Resp BP Pulse Ox 36.4 C 46 L 14 162/66 H 91 L 06/26/16 07:20 06/26/16 07:20 06/26/16 07:20 06/26/16 07:20 06/26/16 07:20 Laboratory Results 06/25/16 03:52 06/25/16 03:52 06/25/16 06/26/16 06/27/16 05:59 05:59 05:59 Intake Total 350 400 Output Total 1351 1968 100 Balance -1001 -1568 -100 Physical Exam - Physical Exam General Appearance: alert Neck: supple Respiratory: rhonchi, No rales Cardiac/Chest: regular rate, rhythm, systolic murmur, No edema, No gallop Abdomen: normal bowel sounds, non-tender, soft, No organomegaly Skin: normal color (wound remainHes as described RLE.), other (wound as described RLE) Extremities: non-tender, No calf tenderness Neuro/Psych: alert, normal mood/affect ICD10 Worksheet Patient Problems: Problems Problem Status Diagnosed Acute decompensated heart failure Acute Chronic Diseae Mgmt/Transitional Care Acute MEREDITH (acute kidney injury) Acute Afib Acute Atrial fibrillation with rapid ventricular response Acute CHF (congestive heart failure) Acute Chest pain Acute Dehydration Acute Elevated LFTs Acute Foot ulcer Acute Pleural effusion due to CHF (congestive heart failure) Acute
--- NOTE | 2016-06-26 14:48 | GDS ---
[f rep st] DISCHARGE SUMMARY DISCHARGE DIAGNOSES: 1. Acute diastolic heart failure. 2. Possible left lower extremity cellulitis. 3. History of coronary artery disease with recent stent placement. 4. Paroxysmal atrial fibrillation. 5. Recent cholecystectomy. 6. Mild chronic kidney disease. 7. Severe pulmonary hypertension. CONSULTANTS: Dr. Enrique Amaya, [facility]. HOSPITAL COURSE AND STAY BY PROBLEM: 1. Acute diastolic heart failure: Patient was admitted to telemetry, where she was treated with IV furosemide. On the day of discharge, she appears to be euvolemic and at her baseline weight. I disc ussed the case with Dr. Enrique Amaya, who was in agreement with discharging her on 40 mg of Lasix, as well as her other home medications with close outpatient followup with the Heart Failure Clinic. 2. Lower extremity cellulitis: Patient was initially treated with vancomycin. On day of discharge, she has minimal erythema in her foot. We will plan on discharging her to complete her course of cli ndamycin, which she had been prescribed prior to her visit in the hospital. PHYSICAL EXAM: VITAL SIGNS: On day of discharge blood pressure 162/66, pulse of 46, respiratory rat e 14, O2 sat 91% on room air. GENERAL: No acute distress. HEART: S1, S2. LUNGS: Clear. ABDOMEN : Soft. PERTINENT LABS AND STUDIES DONE THIS HOSPITAL STAY: Echocardiogram done 06/25/2016 revealed diastoli c dysfunction with an ejection fraction of 65-70%. There is moderate mitral regurgitation and severe tricuspid regurgitation with right ventricular systolic pressure of 77 mmHg with Doppler evidence fo r severe pulmonary hypertension. DISCHARGE MEDICATIONS: Please refer to discharge medication reconciliation in [facility] for details. DISCHARGE INSTRUCTIONS: The patient will be discharged from the hospital, where she should follow up with [facility] in the next week as scheduled. She was counseled to stay on a low-salt diet. e should call [facility] if she starts gaining weight or swelling. /[id number]/MODL
== END 2016-06-26 10:50 | disposition home or self-care (01) | DRG 292 ==
LOC: F2W 15:04
PROVIDERS: ADMIT Internal Medicine; ATTEND Family Medicine
DX: I50.33 Acute on chronic diastolic (congestive) heart failure (principal); L03.115 Cellulitis of right lower limb; I48.0 Paroxysmal atrial fibrillation; N18.9 Chronic kidney disease, unspecified; I27.2 Other secondary pulmonary hypertension; I25.10 Atherosclerotic heart disease of native coronary artery without angina pectoris; I12.9 Hypertensive chronic kidney disease with stage 1 through stage 4 chronic kidney disease, or unspecified chronic kidney disease; I25.2 Old myocardial infarction; I34.0 Nonrheumatic mitral (valve) insufficiency; I73.9 Peripheral vascular disease, unspecified; E05.90 Thyrotoxicosis, unspecified without thyrotoxic crisis or storm; M81.0 Age-related osteoporosis without current pathological fracture; Z66 Do not resuscitate; Z95.5 Presence of coronary angioplasty implant and graft; Z79.01 Long term (current) use of anticoagulants; Z79.02 Long term (current) use of antithrombotics/antiplatelets; Z85.118 Personal history of other malignant neoplasm of bronchus and lung; Z90.2 Acquired absence of lung [part of]
CPT/HCPCS: 96365; 97116-GP; 97161-GP; 97165-GO; G8979-GP-CI; G8980-GP-CI; G8987-GO-CI; G8988-GO-CI; G8989-GO-CI; J1335; J3370

== ENCOUNTER 2016-07-06 16:56 | Emergency (ER) | payer OTHER, MEDICARE ==
[2016-07-06 17:03] VITALS: RESP 16; TEMP 97.7
[2016-07-06] MEDS ORDERED: PHENYLEPHRINE 0.5% NASAL 15 ML SPRAY ONE (18:21)
[2016-07-06] MEDS ORDERED: SILVER NITRATE APPLICATOR 1 APPL TP ONE (18:23)
--- NOTE | 2016-07-06 18:23 | EDPHY ---
H & P Time Seen by Provider: 07/06/16 18:07 HPI/ROS: CHIEF COMPLAINT: nosebleed HISTORY OF PRESENT ILLNESS: Patient is an 80-year-old female with a history of diastolic heart failure on Coumadin and Plavix who presents to the emergency department with nosebleed. She had an episode of nose bleed yesterday. She was able to get it to stop after about an hour and a half. She again had a nosebleed today. Both times has been out of her right nares. She states that the 1 have problems with. She feels as though it is congested often. She states it bled for approximately an hour and half at home. While she was in the waiting room a nasal clip was placed. This arrest the bleeding and approximately 10 minutes. She has no pain. She denies lightheadedness or dizziness. No shortness of breath or cough. No recent illness. REVIEW OF SYSTEMS: My complete review of systems is negative except as mentioned in the HPI. Past Medical/Surgical History: Includes diastolic heart failure, cellulitis, coronary artery disease, paroxysmal atrial fibrillation, cholecystectomy, kidney disease, pulmonary hypertension Smoking Status: Never smoked Physical Exam: Vitals noted. Heart rate 59. GENERAL: Well-appearing, in no acute distress, alert. HEENT: Eyes normal to inspection, normal pharynx. Patient's right naris has dried blood. There is no active bleeding. I was unable to visualize the source of bleeding due to the clotting. NECK: No thyromegaly, no lymphadenopathy, supple. RESPIRATORY: Clear to auscultation bilaterally, no rales, rhonchi or wheezing. CVS: Regular rate and rhythm, no rubs, murmurs, or gallops. ABDOMEN: Soft, nontender, nondistended, no organomegaly. BACK: Normal to inspection, no CVA tenderness. SKIN: Normal color, no rash, warm, dry. No pallor. EXTREMITIES: No pedal edema, no joint swelling. NEURO/PSYCH: Alert and oriented, normal mood and affect, normal motor sensory exam. Constitutional: Initial Vital Signs Temperature (C) 36.5 C 07/06/16 17:01 Heart Rate 59 L 07/06/16 17:01 Respiratory Rate 16 07/06/16 17:01 Blood Pressure 162/79 H 07/06/16 17:01 O2 Sat (%) 92 07/06/16 17:01 O2 Delivery Mode Room Air Allergies/Adverse Reactions: penicillin V potassium [From Pen-Veshell K] Allergy (Verified 05/28/16 01:36) Penicillins Allergy (Verified 06/24/16 11:10) Sulfa (Sulfonamide Antibiotics) Allergy (Verified 05/28/16 01:36) Home Medications: Medication Instructions Recorded Amiodarone HCl [Pacerone (*)] 50 mg PO DAILY 08/19/12 Multivitamins [Multivitamin (*)] 1 each PO DAILY 08/19/12 Atorvastatin Calcium [Lipitor 10 10 mg PO HS #30 tab 03/07/16 mg (*)] Clopidogrel Bisulfate [Plavix (*)] 75 mg PO DAILY #30 tab 03/07/16 Nitroglycerin [Nitrostat 0.4 mg 0.4 mg SL PRN PRN #1 btl 03/07/16 (*)] Apixaban [Eliquis] 2.5 mg PO BID 03/12/16 Losartan Potassium [Cozaar 25 mg 25 mg PO DAILY 05/26/16 (*)] Carboxymethylcellulose 1% [Refresh 1 - 2 drop EACHEYE Q2 PRN #0 06/06/16 Celluvisc (*)] droperette Metoprolol Tartrate [Lopressor 50 75 mg PO BID #0 tab 06/06/16 mg (*)] traMADol [Ultram 50 mg (*)] 50 mg PO Q6HRS PRN #0 tab 06/06/16 Acetaminophen [Tylenol 325mg (*)] 650 mg PO Q6 PRN 06/24/16 Clindamycin HCl [Clindamycin] 300 mg PO TID 06/24/16 Furosemide [Lasix 40 MG (*)] 40 mg PO DAILY 06/24/16 Melatonin [Melatonin 3 MG (*)] 6 mg PO HS 06/24/16 Polyethylene Glycol 3350 [Miralax 17 gm PO DAILY 06/24/16 17 gm (*)] Sennosides/Docusate Sodium 2 tab PO DAILY@18 PRN 06/24/16 [Senokot-S] Tobramycin/Dexamethasone [Tobradex 1 drop EACHEYE TID 06/24/16 Eye Drops] Medical Decision Making ED Course/Re-evaluation: In the emergency department I discussed possible etiologies nose with the patient. I instructed the patient to blood clots out of her nose. Alejandro- Synephrine was infused. A nasal clamp was applied. I rechecked the patient while here. She had no further nose bleed. 1944: I rechecked the patient. She had no active bleeding. There did appear to be significant vascular formation on the medial distal part of her naris. [place] this was more appropriately followed up by ENT. I discussed this with the patient and her daughter. Explained treatment plan at home. If she develops nose bleed she will use Alejandro-Synephrine and a nose clamp. She is aware she is to call ENT on Friday. She is given warnings prior to leaving. She will return with worsening symptoms. Just prior to leaving the patient did have some mild oozing from her right naris. She was again given a did Alejandro-Synephrine spray. Nasal clamp was applied. I discussed the plan of treatment with patient and her daughter. They felt comfortable with the plan for discharge. There continues to nasal clamp as needed. Differential Diagnosis: My differential includes but is not limited to anterior epistaxis, posterior epistaxis, dry mucosa, anticoagulation - Data Points Medications Given: Discontinued Medications Oxymetazoline HCl (Afrin Nasal [place]) 2 sprays NS EDNOW ONE Stop: 07/06/16 20:02 Last Admin: 07/06/16 20:02 Dose: 2 spray Departure - Departure Disposition: Home, Routine, Self-Care Clinical Impression: Acute anterior epistaxis Condition: Good Instructions: Nosebleed (ED) Additional Instructions: You need to call the ears Nose and Throat physician on Friday to make an appointment. If you develope a nosebleed, spray Alejandro-Synephrine in your nostril and then applied a clamp for 15 minutes. Referrals: Charissa Shen MD [Primary Care Provider] - As per Instructions Enrrique Zhang MD [Medical Doctor] - 2-3 days, call for appt.
[2016-07-06] MEDS ORDERED: OXYMETAZOLINE 30 ML NASAL SPRAY NS ONE (20:01)
[2016-07-06 20:02] VITALS: BP 155/71; PULSE 71; O2SAT 96
== END 2016-07-06 20:02 | disposition home or self-care (01) ==
DX: R04.0 Epistaxis (principal); I25.10 Atherosclerotic heart disease of native coronary artery without angina pectoris; Z79.01 Long term (current) use of anticoagulants

== ENCOUNTER → 2016-07-29 | Outpatient (CLI) | payer OTHER, MEDICARE ==
--- NOTE | 2016-07-29 18:21 | DX ---
Lumbar spine upright AP and lateral with obliques 1237 hours. History: Recent increase in low back pain without trauma. Findings: Comparison to sagittal and coronal reconstructed images of the lumbar spine from CT study o f 05/28/2016. There is mild to moderate levoscoliosis mid lumbar spine. Underlying osteopenia/osteoporosis is suspe cted. No definite acute fractures are appreciated. Intervertebral disk spaces are relatively well-raissa ntained. There is no spondylolysis or spondylolisthesis. Impression: 1. Moderate levoscoliosis mid lumbar spine. 2. Underlying osteopenia/osteoporosis suspected. If indicated, consider correlation with DEXA scan at some point to evaluate underlying bone mineral density. 3. No acute fracture is appreciated. If symptoms persist, consider correlation with MRI as clinically directed.
== END ==
LOC: CIMAGING 12:23
PROVIDERS: ATTEND Internal Medicine
DX: M54.5 Low back pain (principal); M41.9 Scoliosis, unspecified
CPT/HCPCS: 72100-PO

== ENCOUNTER → 2016-08-05 | Outpatient (CLI) | payer OTHER, MEDICARE | LOC: FIMAGING 11:49 | DX: Z12.31 Encounter for screening mammogram for malignant neoplasm of breast (principal); Z85.3 Personal history of malignant neoplasm of breast; Z80.3 Family history of malignant neoplasm of breast | CPT/HCPCS: G0202-52 ==

== ENCOUNTER → 2016-08-10 | Outpatient (CLI) | payer OTHER, MEDICARE | LOC: FIMAGING 07:58 | PROVIDERS: ATTEND Internal Medicine | DX: S22.080A Wedge compression fracture of T11-T12 vertebra, initial encounter for closed fracture (principal); M48.06 Spinal stenosis, lumbar region ==

== ENCOUNTER → 2016-09-10 | Outpatient (CLI) | payer OTHER, MEDICARE | LOC: CIMAGING 12:06 | PROVIDERS: ATTEND Neurological Surgery | DX: S22.080A Wedge compression fracture of T11-T12 vertebra, initial encounter for closed fracture (principal); X58.XXXA Exposure to other specified factors, initial encounter; M81.0 Age-related osteoporosis without current pathological fracture | CPT/HCPCS: 72070-PO ==

== ENCOUNTER 2016-09-15 08:16 | Emergency (ER) | payer OTHER, MEDICARE ==
[2016-09-15] MEDS ORDERED: PHENYLEPHRINE 0.25% NASAL 15 ML SPRAY ONE ×2 (08:31→08:38)
[2016-09-15] MEDS ORDERED: PHENYLEPHRINE 0.25% NASAL 15 ML SPRAY EACHNARE ONE (08:38)
--- NOTE | 2016-09-15 09:01 | UCPHY ---
H & P Patient Type: Established Chief Complaint Nursing Narrative: pt with nosebleed since 4am ,. Had elevated INR this prior week. Was lightheaded prior to arrival. Time Seen by Provider: 09/15/16 08:44 HPI/ROS: Chief Complaint: Nosebleed HPI: 80-year-old female with a history of atrial fibrillation on Coumadin woke this morning with a nosebleed from her right nostril. Patient states that she had her INR checked on Friday was noted to be elevated above 3.5. She had held her Coumadin earlier in the week. She did have a nose bleed on Friday which was brief. She called the [facility] a was instructed to resume her Coumadin. She woke up this morning with some bleeding from her right nostril which has persisted. It is described as a whose. Is going up the front and is not seem to be going down the back of her throat. No nausea or vomiting. No headaches. She is scheduled for an INR recheck tomorrow. Denies any nasal trauma. ROS: 10 point Review of Systems is negative except as noted in the HPI. PMH: Atrial fibrillation, coronary artery disease status post AR Social History: No smoking, no alcohol, no recreational drug use Family History: non-contributory Physical Exam: Gen: Awake, Alert, No Distress HEENT: She has scant oozing from her right near from an anterior source which is undetermined initially Eyes: PERRLA, EOMI Mouth: Moist mucosa Neck: Supple, no JVD Ext: no edema, non-tender Skin: no rash Neuro: CN II-XII intact, Sensation grossly intact, Strength 5/5 in bilateral upper and lower extremities - Personal History Current Tetanus Diphtheria and Acellular Pertussis (TDAP): Yes Tetanus Vaccine Date: 2008 - Medical/Surgical History Hx Asthma: No Hx Chronic Respiratory Disease: Yes Hx Diabetes: No Hx Cardiac Disease: Yes Hx Renal Disease: Yes Hx Cirrhosis: No Hx Alcoholism: No Hx HIV/AIDS: No Hx Splenectomy or Spleen Trauma: No Other PMH: A-fib;HTN;Stents x 2;Renal Disease;Lung Cancer-1988--Lt lobe lobectomy;S/P T&A;S/P Appy;S/P Rt Mastectomy - Family History Significant Family History: No pertinent family hx - Social History Smoking Status: Never smoked Constitutional: Initial Vital Signs Temperature (C) 36.5 C 09/15/16 08:42 Heart Rate 50 L 09/15/16 08:42 Respiratory Rate 20 09/15/16 08:42 Blood Pressure 152/60 H 09/15/16 08:42 O2 Sat (%) 98 04 08:42 O2 Delivery Mode Room Air Allergies/Adverse Reactions: penicillin V potassium [From Pen-Vee K] Allergy (Verified 09/15/16 08:49) Penicillins Allergy (Verified 09/15/16 08:49) Sulfa (Sulfonamide Antibiotics) Allergy (Verified 09/15/16 08:49) Home Medications: Medication Instructions Recorded Amiodarone HCl [Pacerone (*)] 50 mg PO DAILY 08/19/12 Multivitamins [Multivitamin (*)] 1 each PO DAILY 08/19/12 Atorvastatin Calcium [Lipitor 10 10 mg PO HS #30 tab 03/07/16 mg (*)] Losartan Potassium [Cozaar 25 mg 25 mg PO DAILY 05/26/16 (*)] Metoprolol Tartrate [Lopressor 50 75 mg PO BID #0 tab 06/06/16 mg (*)] Furosemide [Lasix 40 MG (*)] 40 mg PO DAILY 06/24/16 Aldactone 09/15/16 Aspirin 81mg (*) 09/15/16 Coumadin 09/15/16 Medical Decision Making Procedures: Procedure: Epistaxis control. After verbal consent was obtained, the patient was anesthetized with 1% lidocaine and Alejandro-Synephrine. The anterior epistaxis was identified. The patient was treated with direct pressure. Following the procedure the patient was re-examined and the bleeding was well controlled. The patient tolerated the procedure well. The procedure was performed by myself. Differential Diagnosis: Patient has had no further epistaxis after initial management of direct pressure Afrin and lidocaine. On repeat examination there is no anterior site noted. INR was 3.05. Patient has been counseled that if recurrent bleeding returns she should apply direct pressure with the nasal clamp for 30 minutes. If it continues after that she will come in for re-evaluation. There is not an indication for packing at this time. Patient is comfortable. At most bleeding with scant to begin with. She will follow up with the [facility] tomorrow regarding her dosing of her Coumadin. - Data Points Laboratory Results: 09/15/16 09:00 PT 31.5 SEC H SEC (12.0-15.0) INR 3.05 H (0.83-1.16) APTT 36.5 SEC SEC (23.0-38.0) Departure - Departure Disposition: Home, Routine, Self-Care Clinical Impression: Epistaxis Condition: Good Instructions: Nosebleed (ED) Additional Instructions: If you know starts to bleed again apply direct pressure with the nose clear for 30 minutes. If he continues bleeding after that return for further treatment. Follow up with the [facility] Clinic tomorrow. Referrals: Charissa Shen MD [Primary Care Provider] - As per Instructions - PQRS PQRS Measurement: 134: Depression screening and followup, PRIME MD-PHQ2 (12 years and older) Over the last 2 weeks, how often have you been bothered by any of the following problems? 1. Feeling down, depressed, or hopeless? 2. Little interest or pleasure in doing things? Patient answered no to both 1 and 2 130: Documentation of medications. Reviewed all patient medications, doses, route and frequency. 226: Do you smoke? No. 47: 65 and older: Advanced care planning. Patient designates surrogate decision maker as. Patient refused. 51: 18 years old and older with diagnosis of COPD, spirometry performance. Patient has no history of COPD 52: 18 years old and older with COPD and symptoms of COPD or FEV1<60% predicted prescribed a B Agonist. Spirometry not performed; equipment not available.
[2016-09-15 09:05] VITALS: TEMP 97.7
[2016-09-15 09:18] LABS: APTT 36.5 SEC (23.0-38.0); INR 3.05 (0.83-1.16); PROTIME(PATIENT) 31.5 SEC (12.0-15.0)
[2016-09-15 09:54] VITALS: BP 158/65; PULSE 53; RESP 16; O2SAT 96
== END 2016-09-15 09:54 | disposition home or self-care (01) ==
LOC: CED 08:16
PROC: 2Y41X5Z Packing of Nasal Region using Packing Material (ICD-10-PCS; principal; 2016-09-15)
DX: R04.0 Epistaxis (principal); I48.91 Unspecified atrial fibrillation; I10 Essential (primary) hypertension; Z79.01 Long term (current) use of anticoagulants; Z85.118 Personal history of other malignant neoplasm of bronchus and lung
CPT/HCPCS: 30901; G0463; 85610-PO; 85730-PO

== ENCOUNTER → 2016-10-19 | Emergency (ER) | payer OTHER, MEDICARE ==
[2016-10-19 09:38] VITALS: RESP 16; TEMP 97.5
--- NOTE | 2016-10-19 11:07 | EDPHY ---
H & P Stated Complaint: rt shoulder and cervical pain. Has been eval but unable to sleep d/t pain Time Seen by Provider: 10/19/16 09:43 HPI/ROS: CHIEF COMPLAINT: Back pain History by patient HISTORY OF PRESENT ILLNESS: 81-year-old woman with a history of heart disease and severe osteopenia and prior T12 compression fracture presents complaining of upper back pain. She has been seen by her primary care physician and at [facility] for this problem and was scheduled for an MRI last week. She was unable to do the MRI because of significant pain with lying down but she did not want to take any pain medications. Her PCP and spine physician recommended she try lidocaine patches however she was worried that these might interact with her other medications prompting her to seek medical attention today. She says the pain in her upper back is gotten worse and she can't sleep. She has tried Tylenol with no relief. She has had some intermittent itching and tingling in both arms but no weakness. She has a history of kyphosis which she says is not worse than usual. She has not yet had plain films of her back. She does state she had a bone density scan which showed severe osteopenia. REVIEW OF SYSTEMS: As in HPI, and all other systems reviewed and are negative Source: Patient - Personal History Tetanus Vaccine Date: 2008 - Medical/Surgical History Hx Asthma: No Hx Chronic Respiratory Disease: Yes Hx Diabetes: No Hx Cardiac Disease: Yes Hx Renal Disease: Yes Hx Cirrhosis: No Hx Alcoholism: No Hx HIV/AIDS: No Hx Splenectomy or Spleen Trauma: No Other PMH: A-fib;HTN;Stents x 2;Renal Disease;Lung Cancer-1988--Lt lobe lobectomy;S/P T&A;S/P Appy;S/P Rt Mastectomy,T4-fx,scoliosis and arthritis - Family History Significant Family History: No pertinent family hx - Social History Smoking Status: Never smoked - Physical Exam Exam: General Appearance: Alert and no distress. Eyes: Pupils equal and round no injection. Back: Severe kyphosis, positive tenderness to upper T-spine Musculoskeletal: Neck is supple and nontender. Extremities: Full range of motion of both shoulders and arms, radial pulses 2+ equal bilaterally, distal sensation intact, normal gait. Skin: No rashes or lesions. Constitutional: Initial Vital Signs Temperature (C) 36.4 C 10/19/16 09:30 Heart Rate 55 L 10/19/16 09:30 Respiratory Rate 16 10/19/16 09:30 Blood Pressure 164/71 H 10/19/16 09:30 O2 Sat (%) 94 10/19/16 09:30 O2 Delivery Mode Room Air Allergies/Adverse Reactions: penicillin V potassium [From Pen-Vee K] Allergy (Verified 10/19/16 09:27) Penicillins Allergy (Verified 10/19/16 09:27) Sulfa (Sulfonamide Antibiotics) Allergy (Verified 10/19/16 09:27) Home Medications: Medication Instructions Recorded Amiodarone HCl [Pacerone (*)] 50 mg PO DAILY 08/19/12 Multivitamins [Multivitamin (*)] 1 each PO DAILY 08/19/12 Atorvastatin Calcium [Lipitor 10 10 mg PO HS #30 tab 03/07/16 mg (*)] Losartan Potassium [Cozaar 25 mg 25 mg PO DAILY 05/26/16 (*)] Metoprolol Tartrate [Lopressor 50 75 mg PO BID #0 tab 06/06/16 mg (*)] Furosemide [Lasix 40 MG (*)] 40 mg PO DAILY 06/24/16 Aldactone 09/15/16 Coumadin 09/15/16 Lidocaine 5% [Lidoderm 5% Patch 1 ea TD DAILY #30 patch 10/19/16 (*)] Medical Decision Making ED Course/Re-evaluation: 81-year-old woman with severe kyphosis and prior history of osteopenia and T spine compression fracture presents with upper T-spine pain at without history of trauma. There is no neurologic impairment. I was concerned about a new compression fracture in her back given her point tenderness an x-ray was obtained. The Pacs system went down in on a was unable to view the x-ray except on a small screen which showed severe kyphosis and osteopenia but I was unable to assess for new fracture. I suspect this is likely a new compression fracture. Patient does not want to take oral pain medication. I have reassured the patient that it is safe for her to use the topical lidocaine patches and have given her prescription for the 5% patches if the 4% patches she has do not work. We will call the patient if there is other concerning findings on the x-ray when PACS is back in service. I recommended the patient follow up with her spine doctor and her PCP to get the MRI and have encouraged her to try to take pain medicines to allow her to tolerate the study. Departure - Departure Disposition: Home, Routine, Self-Care Clinical Impression: Back pain of thoracolumbar region Condition: Good Instructions: Back Pain (ED) Additional Instructions: You were seen by Dr. Sydney Irving today. Return for any worsening or new concerns. You may use topical lidocaine patches safely without concern for interaction with your medications for your back pain. If the lidocaine patches you have are not strong enough you may fill the prescription for the 5% patches. If this is inadequate pain control please see regular doctor or return to the ER. Please follow-up with your spine doctor and get the MRI as ordered. Referrals: Charissa Shen MD [Primary Care Provider] - As per Instructions Prescriptions: Lidocaine 5% [Lidoderm 5% Patch (*)] 1 ea TD DAILY #30 patch
[2016-10-19 11:30] VITALS: BP 163/74; PULSE 52; O2SAT 97
== END | disposition home or self-care (01) ==
LOC: CED 09:20
DX: M54.6 Pain in thoracic spine (principal); I10 Essential (primary) hypertension; Z79.01 Long term (current) use of anticoagulants; Z85.118 Personal history of other malignant neoplasm of bronchus and lung; Z95.5 Presence of coronary angioplasty implant and graft
CPT/HCPCS: 72070-PO

== ENCOUNTER → 2016-10-28 | Outpatient (CLI) | payer OTHER, MEDICARE | LOC: CIMAGING 15:12 | PROVIDERS: ATTEND Physician Assistant | DX: S22.080D Wedge compression fracture of T11-T12 vertebra, subsequent encounter for fracture with routine healing (principal) | CPT/HCPCS: 72070-PO ==

== ENCOUNTER → 2017-03-13 | Outpatient (CLI) | payer OTHER, MEDICARE ==
[~2017-03-13] MED LIST: IOPAMIDOL (ISOVUE-300) 100 ML BTL ONE
== END ==
LOC: CIMAGING 11:08
PROVIDERS: ATTEND Emergency Medicine
DX: R91.1 Solitary pulmonary nodule (principal); K86.2 Cyst of pancreas; Z85.3 Personal history of malignant neoplasm of breast; Z85.118 Personal history of other malignant neoplasm of bronchus and lung
CPT/HCPCS: 74160; Q9967; 82565-PO; G0463-PO

== ENCOUNTER 2017-06-06 06:41 | Day surgery (SDC) | payer OTHER, MEDICARE ==
[2017-06-06] MEDS ORDERED: NS 500 ML IV ONE (06:44)
[2017-06-06] MEDS ORDERED: fentaNYL 100 MCG/2 ML INJ IVP ONE (06:44)
[2017-06-06] MEDS ORDERED: MIDAZOLAM 2 MG/2 ML VIAL IVP ONE (06:44)
[2017-06-06] MEDS ORDERED: ATROPINE SULFATE 1 MG/10 ML SYR IVP ONE (06:44)
--- NOTE | 2017-06-06 07:09 | CPEKG ---
Heart Rate: 116 RR Interval: 517 QRSD Interval: 82 QT Interval: 360 QTC Interval: 501 QRS [place]: 34 T Wave [place]: 252 EKG Severity - ABNORMAL ECG - EKG Impression: ATRIAL FIBRILLATION EKG Impression: REPOLARIZATION ABNORMALITIES DIFFUSELY. PROLONGED QT INTERVAL EKG Impression: COMPARED WITH 05/31/2016, ATRIAL FIBRILLATION AND AND REPOLARIZATION EKG Impression: ABNORMALITIES NOW PRESENT Electronically Signed By: Steffany Arias 06-Jun-2017 13:35:52
[2017-06-06 07:36] LABS: APTT 36.8 SEC (23.0-38.0); INR 4.59 (0.83-1.16); PROTIME(PATIENT) 42.9 SEC (12.0-15.0)
[2017-06-06 07:44] LABS: ANION GAP 13 mEq/L (8-16); CARBON DIOXIDE 23 mEq/l (22-31); CHLORIDE 105 mEq/L (97-110); CREATININE 1.8 mg/dL (0.6-1.0); GLOMERULAR FILTRATION RATE 27; GLUCOSE 129 mg/dL (70-100); MAGNESIUM 2.5 mg/dL (1.6-2.3); POTASSIUM 4.9 mEq/L (3.5-5.2); SODIUM 141 mEq/L (134-144)
[2017-06-06] MEDS ORDERED: LIDOCAINE 1% 5 ML SDV ONE (08:26)
[2017-06-06] MEDS ORDERED: PROPOFOL 200 MG/20 ML VIAL ONE (08:27)
--- NOTE | 2017-06-06 08:35 | PDHPUP ---
History & Physical Update H&P update statement: This history and physical update is based on an assessment of the patient which was completed after admission or registration (within 24 hours), but prior to the surgery/procedure. H&P update: H&P reviewed & patient examined, no change in patient's condition since H&P completed
--- NOTE | 2017-06-06 08:38 | PDANEPAE ---
ANE History of Present Illness AFib ANE Past Medical History - Cardiovascular History Hx Hypertension: No Hx Arrhythmias: No Hx Chest Pain: No Hx Coronary Artery / Peripheral Vascular Disease: Yes Hx CHF / Valvular Disease: No Hx Palpitations: Yes - Pulmonary History Hx COPD: No Hx Asthma/Reactive Airway Disease: No Hx Recent Upper Respiratory Infection: No Hx Oxygen in Use at Home: No Hx Sleep Apnea: No - Endocrine History Hx Diabetes: No - Renal History Hx Renal Disorders: Yes Renal History Comment: CRI Cr 1.8 - Liver History Hx Hepatic Disorders: No - Neurological & Psychiatric Hx Hx Neurological and Psychiatric Disorders: No - Chronic Pain History Chronic Pain: No (recent back and abd pain.) ANE Review of Systems Review of systems is: negative Review of Systems: - Exercise capacity Exercise capacity: >=4 METS METS Comment: walks daily, dec with Afib ANE Patient History - Allergies Allergies/Adverse Reactions: penicillin V potassium [From Pen-Vee K] Allergy (Verified 10/19/16 09:27) Penicillins Allergy (Verified 10/19/16 09:27) Sulfa (Sulfonamide Antibiotics) Allergy (Verified 10/19/16 09:27) - Home Medications Home Medications: Multivitamins [Multivitamin (*)] 1 each PO DAILY 08/19/12 [Last Taken 06/24/16] Losartan Potassium [Cozaar 25 mg (*)] 25 mg PO DAILY 05/26/16 [Last Taken 06:00] Furosemide [Lasix 40 MG (*)] 40 mg PO DAILY 06/24/16 [Last Taken 06/05/17 08:00] Coumadin 2.5 mg PO 09/15/16 [Last Taken 06/05/17 19:00] Coumadin 1.25 mg PO 06/06/17 [Last Taken 06/04/17 19:00] Metoprolol Tartrate [Lopressor 50 mg (*)] 25 mg PO BID 06/06/17 [Last Taken 06:00] Nitrostat 1 tab SL PRN 06/06/17 [Last Taken Unknown] Pacerone 200 mg PO DAILY 06/06/17 [Last Taken 06/06/17 06:00] Tylenol 650 mg PO Q4-6PRN PRN 06/06/17 [Last Taken Unknown] - NPO status NPO Status: no food or drink >8 hours - Anes Hx Anes Hx: no prior problems - Smoking Hx Smoking Status: Never smoked - Alcohol Use Alcohol Use: None ANE Labs/Vital Signs - Labs Result Diagrams: 06/06/17 07:10 - Vital Signs Vital Signs: reviewed preoperatively; see RN documention for details Height: 152 cm Weight: 36.3 kg ANE Physical Exam - Airway Neck exam: FROM Mallampati Score: Class 1 Mouth exam: normal dental/mouth exam - Pulmonary Pulmonary: no respiratory distress - Cardiovascular Cardiovascular: regular rate and rhythym - ASA Status ASA Status: III ANE Anesthesia Plan Anesthesia Plan: GA with mask
[2017-06-06] MEDS ORDERED: NALOXONE HCL 0.4 MG/ML INJ IVP PRN (08:51)
--- NOTE | 2017-06-06 08:51 | PDTEE1 ---
JAXON Cardioversion Procedure Procedure: electrical cardioversion Indications: atrial fibrillation Consent: signed and in chart Anticoagulation: warfarin Procedural Details: Pads were placed in anterior-posterior position. JAXON probe was advanced and standard images obtained. There is no evidence of left atrial or left atrial appendage thrombus. Synchronized cardioversion attempt #1: 100J Results: normal sinus rhythm Conclusions: successful cardioversion Patient Problems: Problems Problem Status Onset MEREDITH (acute kidney injury) Acute Acute decompensated heart failure Acute Afib Acute Atrial fibrillation with rapid ventricular response Acute CHF (congestive heart failure) Acute Chest pain Acute Chronic Diseae Mgmt/Transitional Care Acute Dehydration Acute Elevated LFTs Acute Foot ulcer Acute Pleural effusion due to CHF (congestive heart failure) Acute
--- NOTE | 2017-06-06 08:52 | POSTANESTH ---
Post Anesthetic Evaluation Cardiovascular Status: Normal, Stable Respiratory Status: Normal, Stable Level of Consciousness/Mental Status: Can Participate in Eval Pain Control: Adequate, Prn Tx Ordered Nausea/Vomiting Control: Adequate, Prn Tx Ordered Complications Possibly Related to Anesthesia: None Noted
--- NOTE | 2017-06-06 08:57 | CPEKG ---
Heart Rate: 63 RR Interval: 952 P-R Interval: 102 QRSD Interval: 82 QT Interval: 452 QTC Interval: 463 P [place]: 0 QRS [place]: 34 EKG Severity - BORDERLINE ECG - EKG Impression: SINUS RHYTHM EKG Impression: ATRIAL PREMATURE COMPLEX EKG Impression: SHORT WI INTERVAL, ACCELERATED AV CONDUCTION EKG Impression: DIFFUSE SUBTLE REPOLARIZATION ABNORMALITIES EKG Impression: COMPARED WITH 06/06/2017 AT 7:08 A.M., SINUS RHYTHM HAS BEEN RESTORED. Electronically Signed By: Steffany Arias 06-Jun-2017 13:34:59
== END 2017-06-06 10:15 | disposition home or self-care (01) ==
LOC: FCATH 06:41
PROVIDERS: ATTEND Internal Medicine Cardiovascular Disease
PROC: B245ZZ4 Ultrasonography of Left Heart, Transesophageal (ICD-10-PCS; principal; 2017-06-06)
PROC: 5A2204Z Restoration of Cardiac Rhythm, Single (ICD-10-PCS; principal; 2017-06-06)
DX: I48.91 Unspecified atrial fibrillation (principal); Z79.01 Long term (current) use of anticoagulants; I50.32 Chronic diastolic (congestive) heart failure; I25.10 Atherosclerotic heart disease of native coronary artery without angina pectoris; N18.9 Chronic kidney disease, unspecified; I27.20 Pulmonary hypertension, unspecified; I25.2 Old myocardial infarction; Z85.118 Personal history of other malignant neoplasm of bronchus and lung; Z95.5 Presence of coronary angioplasty implant and graft
CPT/HCPCS: J0461; J2704

== ENCOUNTER 2017-06-17 12:15 | Inpatient (IN) | payer OTHER, MEDICARE ==
--- NOTE | 2017-06-17 15:54 | ASMTCMCOM ---
CM Note CM Note Notes: 06/17/2017 Case Management Note Reviewed chart. Pt new to floor today. Pt has previously used [facility] [phone]. Pt a stay in [facility] in 2016. Case Management d/c needs are TBD. There are no PT or OT evals ordered at this time. Case Management to follow. Date Signed: 06/17/2017 03:53 PM Electronically Signed By:Aislinn Varner RN
[2017-06-17 16:16] LABS: PLATELET COUNT 220 10^3/uL (150-400)
[2017-06-17 16:21] LABS: INR 2.6 (0.83-1.16); PROTIME(PATIENT) 27.8 SEC (12.0-15.0)
--- NOTE | 2017-06-17 16:32 | CPEKG ---
Heart Rate: 123 RR Interval: 488 QRSD Interval: 82 QT Interval: 300 QTC Interval: 429 QRS [place]: 32 T Wave [place]: 208 EKG Severity - ABNORMAL ECG - EKG Impression: ATRIAL FIBRILLATION EKG Impression: PROBABLE LVH WITH SECONDARY REPOL ABNRM EKG Impression: Diffuse non specfic st- t changes. Electronically Signed By: Enrique Amaya 18-Jun-2017 14:48:27
--- NOTE | 2017-06-17 16:46 | ECHO ---
[email or web address] [address] [address] Main: [phone] Fax: Transthoracic Echocardiogram Name: CHIO HAUSER MR#: [id number] Study Date: 06/17/2017 Study Time: 03:09 PM Date of : 1935 Age: 81 year(s) Height: 162.6 cm (64 in.) Weight: 40.82 kg (90 lb.) BSA: 1.39 m2 Gender: Female Examination: Echo Indication: Recient cardioversion, New onset Atrial fibrillation, CHF Image Quality: Contrast: Requested by: Kayden Quinn BP: 146 mmHg/96 mmHg Heart Rate: Rhythm: Atrial fibrillation Indication: Recient cardioversion, New onset Atrial fibrillation, CHF Procedure Staff Triage Licensed Practical Nurse: Raj Bender Reading Physician: Enrique Amaya Requesting Provider: Conclusions: Normal size left ventricle. Borderline concentric LV hypertrophy. Low normal left ventricular systolic function. EF is 57 %. No regional wall motion abnormality. Flattened interventricular septum consistent with right ventricular pressure and/or volume overload septum. The left atrium is severely dilated. The right atrium is severely dilated. There is mild thickening of the mitral valve leaflets. Moderate mitral valve regurgitation is present. Mild aortic cusp calcification is noted. Severe tricuspid regurgitation is present. The pulmonic valve is normal in appearance and function. Measurements: Chambers Valvular Assessment AV/MV Valvular Assessment TV/PV Normal Normal Normal Name Value Range Name Value Range Name Value Range Ao Fidelia (MM): 2.7 cm (2.2 cm-3.7 AV Vmax: 0.91 m/s (1 m/s-1.7 TR Vmax: 3.81 mm/s ( - ) cm) m/s) TR PGmax: 58 mmHg ( - ) IVSd (2D): 1.0 cm (0.6 cm-1.1 AV maxP mmHg ( - ) syst. PAP: 63 mmHg ( - ) cm) LVOT Vmax: 0.42 m/s (0.7 m/s-1.1 LVDd (2D): 3.8 cm (3.9 cm-5.3 m/s) cm) AR (PHT): 1052 ms ( - ) LVDs (2D): 2.7 cm (2.1 cm-4 MV E Vmax: 0.77 m/s ( - ) cm) LVPWd (2D): 0.8 cm ( - ) LVEF (2D): 57 (>=54 %) Patient: CHIO HAUSER Study Date: 06/17/2017 Page 1 of 2 03:09 PM Continued Measurements: Chambers Valvular Assessment AV/MV Valvular Assessment TV/PV Name Value Name Value Name Value LADs Lon.0 cm MV Annulus: 4.2 cm CVP (est.): 5 mmHg LA Area: 34.4 cm2 MV E' Septal: 0.05 m/s MV E/E' Septal: 14.60 MV E/E' Lateral: 7.10 MR ERO: 0.110 cm2 MR PISA radius: 5 mm MR Reg. Volume: 19 ml AR Vmax: 3.79 cm/s Findings: Left Ventricle: Normal size left ventricle. Borderline concentric LV hypertrophy. Low normal left ventricular systolic function. EF is 57 %. No regional wall motion abnormality. Diastolic dysfunction is present. . Right Ventricle: Flattened interventricular septum consistent with right ventricular pressure and/or volume overload septum. Left Atrium: The left atrium is severely dilated. Right Atrium: The right atrium is severely dilated. Mitral Valve: There is mild thickening of the mitral valve leaflets. Mild mitral valve leaflet calcification is present. Moderate mitral valve regurgitation is present. Aortic Valve: The aortic valve is tri-leaflet. Mild aortic cusp calcification is noted. Tricuspid Valve: The tricuspid valve is normal in appearance and function. Severe tricuspid regurgitation is present. The pulmonary artery pressure is moderately to severely increased. Pulmonic Valve: The pulmonic valve is normal in appearance and function. Aorta: The aorta is normal. Pericardium: Trivial pericardial effusion. Exam Comments: Cardioversion was performed on 06/06/17. (No Signature Object) Patient: CHIO HAUSER Study Date: 06/17/2017 Page 2 of 2 03:09 PM [id number]
[2017-06-17] MEDS: FUROSEMIDE 20 MG/2 ML VIAL IVP SCH ×2 (17:02→23:56)
[2017-06-17] MEDS: ACETAMINOPHEN 325 MG TAB PO PRN (17:02)
[2017-06-17] MEDS: WARFARIN SODIUM 2.5 MG TAB PO SCH (17:17)
--- NOTE | 2017-06-17 18:23 | SOAPPROG ---
SOAP Progress Note Assessment/Plan: Assessment: 1. Severe pulmonary hypertension with right heart failure and severe TR. Normal LV systolic function. 2. Moderate mitral regurgitation 3. Persistent atrial fibrillation with poor rate control 4. Renal Insuf. with creat of 1.5 and single kidney 5. Failure to thrive. 6. Systemic hypertension Plan: IV diuresis Consider AV node ablation wiht PPM if we can not control rate. O2 continue anticoagulation. 06/17/17 18:20 Subjective: See admission H.P Objective: Medications Generic Name Dose Route Start Last Admin Trade Name Sabine PRN Reason Stop Dose Admin Furosemide 20 mg 06/17/17 18:00 06/17/17 17:02 Lasix Injection IVP 12/14/17 17:59 20 mg Q6 GRANT Metoprolol Tartrate 25 mg 06/17/17 21:00 Lopressor PO 12/14/17 20:59 BID GRANT Warfarin Sodium 1.25 mg 06/17/17 17:00 06/17/17 17:17 Coumadin PO 12/14/17 16:59 1.25 mg DAILY16 [facility] Vital Signs Temp Pulse Resp BP Pulse Ox 36.9 C 113 H 20 146/96 H 100 06/17/17 13:26 06/17/17 13:26 06/17/17 13:26 06/17/17 13:26 06/17/17 13:26 Laboratory Results 06/17/17 16:09 06/17/17 17:15 PT 27.8 SEC (12.0-15.0) H 06/17/17 16:09 INR 2.60 (0.83-1.16) H 06/17/17 16:09 Physical Exam - Physical Exam General Appearance: anxiety Respiratory: decreased breath sounds, rales, rhonchi Cardiac/Chest: JVD, systolic murmur, irregularly irregular Abdomen: non-tender, soft Back: No CVA tenderness Skin: warm/dry Extremities: pedal edema Neuro/Psych: alert, depressed affect, No facial droop ICD10 Worksheet Patient Problems: Problems Problem Status Onset Acute decompensated heart failure Acute Chronic Diseae Mgmt/Transitional Care Acute CHF (congestive heart failure) Acute Afib Acute Pleural effusion due to CHF (congestive heart failure) Acute Chest pain Acute Atrial fibrillation with rapid ventricular response Acute MEREDITH (acute kidney injury) Acute Dehydration Acute Elevated LFTs Acute Foot ulcer Acute
[2017-06-17] MEDS ORDERED: METOPROLOL TARTRATE 50 MG TAB PO SCH (21:00)
[2017-06-17] MEDS: METOPROLOL TARTRATE 50 MG TAB PO SCH (21:43)
[2017-06-18] MEDS: FUROSEMIDE 20 MG/2 ML VIAL IVP SCH ×4 (06:09→23:33)
[2017-06-18] MEDS ORDERED: DILTIAZEM 125 MG in D5W 125 ML IV SCH (09:00)
[2017-06-18] MEDS: METOPROLOL TARTRATE 50 MG TAB PO SCH ×2 (09:29→22:13)
--- NOTE | 2017-06-18 16:07 | SOAPPROG ---
SOAP Progress Note Assessment/Plan: 1. Right heart failure - Pt presents with acute on chronic right heart failure secondary to underlying lung disease and diastolic dysfunction. Kendy is down approximately 5 lbs since admit. Edema improved. --> Continue diuresis with goal approximately 1 to 2 L over next 24 hrs. --> treat A-fib as noted below --> BNP in am 2. A-fib - Pt has persistent A-fib. She has failed DCCV and is unable to tolerate amiodarone secondary to LFT abnormalities. Will try to manage with a rate control and anticoagulation strategy. Consider AVN ablation and pacemaker. Rate currently uncontrolled (Ave 115). --> Start diltiazem gtt with goal rate less than 100. --> Continue metoprolol --> continue coumadin 3. MR - Pt has moderate MR. Subjective: No chest pain No orthopnea + PND + edema Objective: Vital Signs Temp Pulse Resp BP Pulse Ox 36.3 C 75 16 104/48 L 97 06/18/17 15:38 06/18/17 15:38 06/18/17 15:38 06/18/17 15:38 06/18/17 15:38 Laboratory Results 06/17/17 16:09 06/17/17 17:15 06/17/17 06/18/17 06/19/17 05:59 05:59 05:59 Intake Total 340 30 Output Total 1600 450 Balance -1260 -420 PT 27.8 SEC (12.0-15.0) H 06/17/17 16:09 INR 2.60 (0.83-1.16) H 06/17/17 16:09 Physical Exam - Physical Exam General Appearance: alert, no apparent distress Respiratory: lungs clear Cardiac/Chest: tachycardia, systolic murmur, irregularly irregular Extremities: pedal edema Neuro/Psych: alert ICD10 Worksheet Patient Problems: Problems Problem Status Onset MEREDITH (acute kidney injury) Acute Acute decompensated heart failure Acute Afib Acute Atrial fibrillation with rapid ventricular response Acute CHF (congestive heart failure) Acute Chest pain Acute Chronic Diseae Mgmt/Transitional Care Acute Dehydration Acute Elevated LFTs Acute Foot ulcer Acute Pleural effusion due to CHF (congestive heart failure) Acute
[2017-06-18] MEDS: WARFARIN SODIUM 2.5 MG TAB PO SCH (17:46)
[2017-06-18] MEDS ORDERED: POLYETHYLENE GLYCOL 3350 17 GM PKT PO PRN (18:59)
[2017-06-18] MEDS: ACETAMINOPHEN 325 MG TAB PO PRN (23:42)
[2017-06-19 04:47] LABS: INR 3.1 (0.83-1.16); PROTIME(PATIENT) 31.8 SEC (12.0-15.0)
[2017-06-19] MEDS: FUROSEMIDE 20 MG/2 ML VIAL IVP SCH ×4 (06:25→18:54)
[2017-06-19] MEDS: METOPROLOL TARTRATE 50 MG TAB PO SCH ×2 (07:37→20:22)
[2017-06-19] MEDS ORDERED: POTASSIUM CL 10 MEQ TAB PO ONE (14:00)
--- NOTE | 2017-06-19 14:33 | ASMTCMCOM ---
CM Note CM Note Notes: CM spoke w/ CHRISTOPHER Blevins regarding d/c POC. Dora is recommending HC; RN and PT. CM met w/ pt for dispo planning. Pt is agreeable to having HC services. Pt would like [facility]. CM made referral to [facility] and they are able to accept. CM to follow. Plan: [facility]; RN and PT Date Signed: 06/19/2017 02:32 PM Electronically Signed By:CARROLL Osorio
--- NOTE | 2017-06-19 14:46 | PDCARPN ---
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 Persistent atrial fibrillation- failed CV 1 week ago and unable to tolerate Amiodarone secondary to LFT elevation. Plan for better rate control. She is on Metoprolol and Cardizem IV was added. Her rates are now running 70-85 BPM consistently. She will be switched to PO dilt 30mg TID. Coumadin will be held today secondary to a spike in her INR to 3.1. Dr. Antunez saw today and discussed a Linq to ensure her symptoms are related to a.fib and not due to her underlying pulm dz. She may ultimately need a AV node ablation and pacer. She is at increased risk for invasive procedures given her small size. 2. RHF-acute on chronic secondary to underlying lung disease and DD. She is down a additional 2 pounds and her edema is improving but still present. Will back off on Lasix to 20mg IV Q8. Her BP has been in the 80's on occasion. She is asymptomatic with hypotension 3. CRI- stable 4. Hypokalemia- will replace 5. MR- moderate Consider D/C home with home health in a few days 06/19/17 14:46 Subjective: Swelling is still present but has improved. She denies any CP or SOB. Objective: Vital Signs (8 Hrs) Temp Pulse Resp BP Pulse Ox 06/19/17 11:41 36.5 C 64 19 88/53 L 92 06/19/17 08:30 36.4 C 81 20 98/60 L 94 Intake/Output (24 Hrs) 06/18/17 06/19/17 06/20/17 05:59 05:59 05:59 Intake Total 340 730 Output Total 1600 950 Balance -1260 -220 Intake: Oral (ml) 340 730 Output: Urine (ml) 1600 950 Bedside Commode 500 Toilet 1600 450 Other: Weight 88.6 kg 39.4 kg Number of Voids Bedside Commode 1 Toilet 1 1 tele- a.fib with rates of 70-85 Result Diagrams: 06/17/17 16:09 06/19/17 03:15 Cardiac Labs: Cardiac Lab Results (72 Hrs) 06/17/17 16:09 Troponin I REJ - Physical Exam Constitutional: no apparent distress Cardiovascular: irregularly irregular, other (bilateral lower extremity edema which has improved but is still present) Respiratory: clear to auscultate bilat, no crackles, no wheezes Neurologic: AAOx3 ICD10 Worksheet Patient Problems: Problems Problem Status Onset MEREDITH (acute kidney injury) Acute Acute decompensated heart failure Acute Afib Acute Atrial fibrillation with rapid ventricular response Acute CHF (congestive heart failure) Acute Chest pain Acute Chronic Diseae Mgmt/Transitional Care Acute Dehydration Acute Elevated LFTs Acute Foot ulcer Acute Pleural effusion due to CHF (congestive heart failure) Acute
[2017-06-19] MEDS: DILTIAZEM 30 MG TAB PO SCH ×2 (14:57→23:07)
[2017-06-19] MEDS ORDERED: FUROSEMIDE 20 MG/2 ML VIAL ONE (18:53)
[2017-06-20 04:53] LABS: INR 2.76 (0.83-1.16); PROTIME(PATIENT) 29.1 SEC (12.0-15.0)
[2017-06-20] MEDS: FUROSEMIDE 20 MG/2 ML VIAL IVP SCH ×3 (05:43→21:05)
[2017-06-20] MEDS: DILTIAZEM 30 MG TAB PO SCH ×2 (08:11→18:00)
[2017-06-20] MEDS: METOPROLOL TARTRATE 50 MG TAB PO SCH ×2 (08:14→21:04)
[2017-06-20] MEDS: ACETAMINOPHEN 325 MG TAB PO PRN (12:06)
--- NOTE | 2017-06-20 13:41 | PDCARPN ---
Cardiology Progress Note Chief Complaint: edema Assessment/Plan: Assessment: The patient is a 81 y/o F with a history of persistent atrial fibrillation and failed CV 1 week ago who presents with acute on chronic RHF secondary to underlying lung disease Plan: 1. Persistent atrial fibrillation- failed CV 1 week ago and unable to tolerate Amiodarone secondary to LFT elevation. Plan for better rate control. She is on Metoprolol and Cardizem IV was added. Change dilt to 120 daily Currently on Coumadin with a therapeutic INR. She may ultimately need a AV node ablation and pacer. She is at increased risk for invasive procedures given her small size. 2. RHF-acute on chronic secondary to underlying lung disease and DD. She is down a additional 2 pounds and her edema is improving but still present. Continue Lasix 20mg IV Q8 for at least one additional day. Her BP has been in the 80's on occasion. Her BP is more stable on PO dilt. Likely transition to PO diuretic tomorrow morning. Consider torsemide. 3. CRI- stable 4. Hypokalemia- improved 5. MR- moderate Consider D/C home with home health and PT in 1-2 days 06/20/17 13:33 06/20/17 13:41 Subjective: lower extremity edema has improved but is still present. She denies any CP or SOB. Objective: Vital Signs (8 Hrs) Temp Pulse Resp BP Pulse Ox 06/20/17 11:10 36.7 C 100 20 117/71 93 06/20/17 08:11 117 H 06/20/17 07:16 36.6 C 102 H 14 134/89 H 90 L Intake/Output (24 Hrs) 06/19/17 06/20/17 06/21/17 05:59 05:59 05:59 Intake Total 730 800 Output Total 950 700 Balance -220 100 Intake: Oral (ml) 730 750 IV Intake (ml) 20 IV Infused (ml) 30 Diltiazem 125 mg In D5w 30 125 ml @ Per Protocol IV CONT GRANT Rx#:[id number] Output: Urine (ml) 950 700 Bedside Commode 500 500 Toilet 450 200 Other: Weight 39.4 kg 39.6 kg Number of Voids Bedside Commode 1 1 Toilet 1 Result Diagrams: 06/17/17 16:09 06/20/17 08:38 Cardiac Labs: Cardiac Lab Results (72 Hrs) 06/17/17 16:09 Troponin I REJ Telemetry: a.fib with HR of 80-110 - Physical Exam Constitutional: WDWN Cardiovascular: irregularly irregular, other (Positive edema bilaterally, improved) Respiratory: no crackles, no wheezes Neurologic: AAOx3 ICD10 Worksheet Patient Problems: Problems Problem Status Onset MEREDITH (acute kidney injury) Acute Acute decompensated heart failure Acute Afib Acute Atrial fibrillation with rapid ventricular response Acute CHF (congestive heart failure) Acute Chest pain Acute Chronic Diseae Mgmt/Transitional Care Acute Dehydration Acute Elevated LFTs Acute Foot ulcer Acute Pleural effusion due to CHF (congestive heart failure) Acute
[2017-06-20] MEDS: DILTIAZEM CD 120 MG CAP PO SCH (16:49)
[2017-06-20] MEDS: WARFARIN SODIUM 2.5 MG TAB PO SCH (16:55)
[2017-06-21] MEDS: FUROSEMIDE 20 MG/2 ML VIAL IVP SCH (05:25)
[2017-06-21] MEDS: DILTIAZEM CD 120 MG CAP PO SCH (08:13)
[2017-06-21] MEDS: METOPROLOL TARTRATE 50 MG TAB PO SCH (08:13)
[2017-06-21 08:41] VITALS: BP 138/71; PULSE 64; RESP 17; TEMP 97.9; O2SAT 91
--- NOTE | 2017-06-21 09:41 | PDIAF ---
- Diagnosis Diagnosis: atrial flutter and right heart failure Code Status: Full Code - Medication Management Discharge Medications: Medications to Continue on Transfer Multivitamins [Multivitamin (*)] 1 each PO DAILY 08/19/12 [Last Taken 06/16/17] Metoprolol Tartrate [Lopressor 50 mg (*)] 25 mg PO BID 06/06/17 [Last Taken 07/03 50mg] Acetaminophen [Tylenol 325mg (*)] 650 mg PO Q4-6PRN PRN 06/17/17 [Last Taken ] Nitroglycerin [Nitrostat 0.4 mg (*)] 0.4 mg SL Q5M PRN 06/17/17 [Last Taken Unknown] Warfarin Sodium [Coumadin 2.5MG (*)] 1.25 mg PO DAILY16 06/17/17 [Last Taken 07/03] Diltiazem Cd [Cardizem ER 120 MG (*)] 120 mg PO DAILY #30 cap 06/21/17 [Last Taken Unknown] Torsemide [Demadex] 40 mg PO DAILY10 #120 tab 06/21/17 [Last Taken Unknown] Discharge Medications: Refer to the Discharge Home Medication list for PRN reason. PICC Care - Routine: N/A - Orders Services needed: Home Care, Registered Nurse, Physical Therapy Home Care Face to Face: I certify that this patient was under my care and that I had the required [id number] encounter meeting the encounter requirements on the discharge day. My findings support the fact that the patient is homebound as defined in Home Care Face to Face Continued: CMS Chapter 7 Medicare Benefits Manual 30.1.1 , The condition of the patient is such that there exists a normal inability to leave home and consequently, leaving home would require a considerable and taxing effort. Isolation Type: None Diet Recommendation: cardiac -low fat low salt Diet Texture: Regular Texture Diet Weigh Patient: daily - Labs/Radiology BMP Date: 06/25/17 PT/INR Date: 06/25/17 Other Lab Name, Date and Time: BNP 06/25/17 - Follow Up Care Current Providers and Referrals: Charissa Shen MD [Primary Care Provider] - Oliver Kohli MD [Medical Doctor] - 06/26/17 10:45 am
--- NOTE | 2017-06-21 10:57 | GDS ---
[f rep st] DISCHARGE SUMMARY DISCHARGE DIAGNOSES: 1. Persistent atrial fibrillation with failed cardioversion 1 week ago and unable to tolerate amiodarone secondary to liver function test elevation. Plan for rate control and anticoagulation. She did convert to normal sinus rhythm the day prior to discharge. 2. Right heart failure. 3. Chronic renal insufficiency, stable. 4. Moderate mitral regurgitation. 5. Hypokalemia. 6. Coronary artery disease, not amenable to percutaneous coronary intervention in 2016. HOSPITAL COURSE: For detailed H and P, please see prior dictation. Briefly, the patient is an anxious 81-year-old female who was seen in our office by Dr. Kayden Quinn complaining of progressive weakness and peripheral edema. She has a history of persistent atrial fibrillation and failed cardioversion 1 week ago. She has also failed amiodarone therapy secondary to LFT elevation. She has been thought to be a poor candidate for sotalol and Tikosyn due to her size. She ultimately was admitted to the hospital for better rate control of her atrial fibrillation and diuresis. Her last echocardiogram showed an ejection fraction that was mildly depressed at 45%-50%. She was taking 50 mg of metoprolol at home for rate control. On admission to the hospital, diltiazem IV was added with better control of her rates. She did become hypotensive and therefore, was only able to be maintained at 4. She was then transitioned to Cardizem 120 mg daily. Her rates were better controlled, running 80 to 100 beats per minute. The day prior to discharge, she converted to normal sinus rhythm. She has been on Coumadin and her INR is currently therapeutic. She also presented with acute on chronic right heart failure secondary to underlying lung disease and diastolic dysfunction. She was placed on Lasix IV and diuresed moderately. She still has lower extremity edema to the mid thigh bilaterally but this is improved. She will be discharged home on torsemide 40 mg twice daily. She has been counseled on a low-sodium diet and daily weights. Her renal function has been monitored closely and has remained at baseline and is 1.5 at the time of discharge. Her BNP during her hospitalization was 7240. PHYSICAL EXAMINATION: GENERAL: Patient appears in no acute distress. VITAL SIGNS: Blood pressure 138/71, heart rate 64, oxygen saturation of 91% on room air, afebrile. CARDIAC: Regular rate and rhythm. EXTREMITIES: Positive edema bilaterally to the mid calf. MEDICATIONS: She will begin Demadex 40 mg twice daily and Cardizem ER 120 mg daily. She can continue multivitamin daily, metoprolol 50 mg twice daily, nitroglycerin p.r.n., Tylenol p.r.n., Coumadin 1.25 mg daily. PLAN: The patient is currently stable and ready for discharge home. She has been counseled on congestive heart failure and will maintain a low-sodium diet and monitor her weights daily. She is scheduled to follow up with Dr. Kohli on June 26 and will have a BMP, BNP, and PT/INR prior to her followup visit. The patient is currently in normal sinus rhythm, but she has difficult-to- control atrial fibrillation. If her symptoms return, consider a LINQ placement to better assess whether atrial fibrillation is truly a cause of her symptoms. The patient was seen by Dr. Chi Antunez while in the hospital. He did not recommend Tikosyn or sotalol secondary to her size and she has failed amiodarone therapy in the past. Ultimately, she may require an AV leo ablation and pacemaker placement, but she is high risk given her small stature. Greater than 30 minutes was spent coordinating the patient's care today. /[id number]/MODL MTDD
--- NOTE | 2017-06-21 15:14 | ASDISCHSUM ---
Discharge Information Plan Status:Home with Home Health Medically Cleared to Leave:06/20/2017 Discharge Date:06/21/2017 02:28 PM CM D/C Disposition:Home Health Service ADT D/C Disposition:Home, Routine, Self-Care Projected Discharge Date:06/21/2017 11:00 AM Transportation at D/C:Family Discharge Delay Reason: Follow-Up Date:06/21/2017 11:00 AM Discharge Slot:2 - 12:01 pm - 18:00 pm Final Diagnosis:Persistent afib w/ failed cardioversion, R heart failure, chronic renal insuff, mode rate mitral regurg, hypokalemia, CAD Placement Information Referral Type:*Home Health Care Services Referral ID:[id number] Provider Name:[facility] Address 1:[address] [facility] [address] Address 2: City:[place] Selection Factors:Patient/Family Choice State:[place] Patient Contact Information Contact Name:CARMEN Relationship:Daughter Address:[address] Work Phone: City:[place] Alternate Phone: [facility]/Zip Code:[place] [address] Email: Financial Information Financial Class: Primary Plan Desc:MEDICARE INPATIENT Primary Plan Number:[id number] Secondary Plan Desc:[employer]/MDR SUPPLEMENT Secondary Plan Number:[id number] Assessment Information [facility] CM Progress Note CM Note CM Note Notes: 06/17/2017 Case Management Note Reviewed chart. Pt new to floor today. Pt has previously used [facility] [phone]. Pt a stay in [facility] in 2016. Case Management d/c needs are TBD. There are no PT or OT evals ordered at this time. Case Management to follow. Date Signed: 06/17/2017 03:53 PM Electronically Signed By:Aislinn Varner RN [facility] Progress Note CM Note CM Note Notes: CM spoke w/ CHRISTOPHER Blevins regarding d/c POC. Dora is recommending HC; RN and PT. CM met w/ pt for dispo planning. Pt is agreeable to having HC services. Pt would like [facility]. CM made referral to [facility] and they are able to accept. CM to follow. Plan: [facility]; RN and PT Date Signed: 06/19/2017 02:32 PM Electronically Signed By:CARROLL Osorio Case Management Discharge Plan Note Case Management Discharge Discharge Order Complete? Answers: Yes Patient to Obtain Answers: via Family Medications Transportation Arranged Answers: Family/Friends EMTALA Complete Answers: No Notes: N/A Case Management Transport Answers: No Notes: N/A Form Complete Faxed Final Orders Answers: No Notes: Maryjo LOVE to lookup Transfer of Care Summar y and orders Agency/Facility Transfer Answers: No Notes: Maryjo PHAM to print Report Printed & Faxed to report Receiving Agency Family Notified Answers: Yes Notes: Pt's dghtr aware of discharge Discharge Comments Notes: Reviewed chart regarding discharge plan, pt's progress. Per notes, pt to discharge home w/ [facility] ([facility]) today. Met w/ pt to discuss home care; pt agreeable. Several questions answered; alerted RENETTA Downing of additional questions related to medications and need for home oxygen. Address and phone number verified. Call placed to Maryjo reno/ [facility] to confirm home care services. Per Maryjo, able to accept pt w/ start of care for Friday06/22/17 (RN/PT services). Pt given information on Meals on Wheels at pt request. Pt also provided / [facility] contact information and business card for further questions or concerns. Pt to follow up as directed (appt scheduled for 06/26/17). Pt left prior to signing IM. CM avail for any further issues or needs. Discharge Plan: Home [facility] Care Date Signed: 06/21/2017 03:14 PM Electronically Signed By:Sierra Irwin RN Intervention Information Intervention Type:*Incorrect Registration Date of Service:06/18/2017 02:07 PM Patient Type:Observation Staff Member:RENETTA Vu, Prachi Hours: Discipline: Severity: Comment:
== END 2017-06-21 14:28 | disposition home or self-care (01) | DRG 292 ==
LOC: F2W 13:21 → OBSVTOIN 13:26 → INTOOBSV 13:26 → F2W 06-18 20:58
PROVIDERS: ADMIT Internal Medicine Interventional Cardiology; ATTEND Internal Medicine Interventional Cardiology
DX: I50.813 Acute on chronic right heart failure (principal); I48.1 Persistent atrial fibrillation; N18.9 Chronic kidney disease, unspecified; I34.0 Nonrheumatic mitral (valve) insufficiency; E87.6 Hypokalemia; I25.10 Atherosclerotic heart disease of native coronary artery without angina pectoris; Z95.5 Presence of coronary angioplasty implant and graft
CPT/HCPCS: J1940

== ENCOUNTER → 2017-08-29 | Outpatient (CLI) | payer OTHER, MEDICARE | LOC: BHCLAF 11:30 | PROVIDERS: ATTEND Internal Medicine Interventional Cardiology | DX: I50.9 Heart failure, unspecified (principal); R60.9 Edema, unspecified; R01.1 Cardiac murmur, unspecified | CPT/HCPCS: 93306-PO ==